=== PATIENT | female | born 1960 | race Two or more races ===

== ENCOUNTER 2024-03-31 15:15 | Inpatient (IN) | payer MEDICAID, OTHER ==
[~2024-03-31] VITALS: Ht 172.7 cm; Wt 84.5 kg
[2024-03-31] MEDS: IPRATROPIUM BROM 0.5 MG/2.5ML INH SOL NEB ONE (16:13)
[2024-03-31] MEDS: ALBUTEROL SULF 2.5 MG/0.5ML(0.5%) NEB SOLN NEB ONE (16:14)
[2024-03-31] MEDS: methylPREDNISolone SOD SUCC 125 MG/2 ML VL IM ONE (16:41)
[2024-03-31 16:46] VITALS: PULSE 93; RESP 17; O2SAT 96
[2024-03-31 17:10] LABS: Basophils # (auto) 0 10 ^3/uL (0-0.2); Basophils % (auto) 0.3 % (0.0-2.0); Eosinophils # (auto) 0 10 ^3/uL (0-0.8); Eosinophils % (auto) 0.4 % (0.0-7.0); Hematocrit 41.1 % (36.0-46.0); Hemoglobin 13.6 g/dL (12.2-16.2); Lymphocytes # (auto) 1.3 10 ^3/uL (0.4-5.4); Lymphocytes % (auto) 12.2 % (10.0-50.0); Mean Corpuscular Hemoglobin 27.8 pg (28.0-32.0); Mean Corpuscular Volume 84.3 fL (80.0-100.0); Monocytes # (auto) 0.7 10 ^3/uL (0-1.3); Neutrophils # (auto) 8.3 10 ^3/uL (1.6-8.6); Neutrophils % (auto) 80.1 % (37.0-80.0); Nucleated Red Blood Cells % 0.1 %; Platelet Count (auto) 443 10^3/uL (140-450); Red Blood Cells 4.88 10^6/uL (4.0-5.20); Red Cell Distribution Width 14.4 % (11.8-14.3); White Blood Cell 10.4 10^3/uL (4.4-10.8)
[2024-03-31 17:22] LABS: Chloride 101 mmol/L (98-107); Potassium 3.4 mmol/L (3.5-5.1); Sodium 139 mmol/L (136-145)
[2024-03-31 17:23] LABS: Anion Gap 7 (5-15); Calcium 10.1 mg/dL (8.7-10.4); Carbon Dioxide 31 mmol/L (20-31)
--- NOTE | 2024-03-31 17:24 | DVH ---
Procedure: CT CHEST WITHOUT CONTRAST Reason for study/Clinical History: PULMONARY NODULES Comparison Study: None available at time of dictation. Exam Date: 03/31/2024 04:51 PM TECHNIQUE: Multidetector CT of the chest was performed from the lung apices to the upper abdomen with out the use of intravenous contract. Axial, coronal and sagittal multiplanar reformats were performed . Radiation Dose Information: CT Dose: CTDI volume is 18.17 mGy. Dose-length product is 700.42 mGy*cm The dose indicators for CT are the volume Computed Tomography (CT) Dose Index (CTDIvol) and the Dose Length Product (DLP), and are measured in units of mGy and mGy-cm, respectively. These indicators are not patient dose, but values generated from the CT scanner acquisition factors. The report includes radiation exposure data for exposures received during this examination. FINDINGS: Lower neck: Normal thyroid. Lungs: There are numerous nodules in both lungs, largest measures up to 24 mm in the right upper lobe . There is mass like consolidation in the left lower lobe. There is a left hilar mass. Heart/Vascular Structures: Normal heart size. No pericardial effusion. Lymph Nodes: There is extensive mediastinal and hilar lymphadenopathy. Pleura: Small left pleural effusion. Musculoskeletal: No acute osseous abnormality. Soft tissues: Normal. Upper abdomen: Limited portions of the upper abdomen are unremarkable. IMPRESSION: 1. Limited without intravenous contrast. Large left hilar mass and large mass replacing most of the l eft lower lung. Extensive bilateral pulmonary nodules, largest measuring up to 24 mm in the right upp er lobe. Mediastinal and bilateral hilar lymphadenopathy. Small left pleural effusion. Findings are c oncerning for malignant disease. CT guided biopsy could be performed. Clinical correlation and contin ue follow-up is recommended. Radiation optimization: All CT scans at this facility use at least one of these dose optimization [place] hniques: automated exposure control mA and/or kV adjustment per patient size (includes targeted exam s where dose is matched to clinical indication) or iterative reconstruction. HS:Y
[2024-03-31 17:28] LABS: BUN/Creatinine Ratio 13.3 (10.0-20.0); Blood Urea Nitrogen 11 mg/dL (9-23); Glucose 116 mg/dL (74-106)
[2024-03-31 17:34] LABS: Urine Bacteria FEW /hpf (None Seen); Urine Blood Negative /uL (Negative); Urine Clarity Turbid (Clear); Urine Color Yellow (Yellow); Urine Hyaline Cast MANY /lpf (0 - 2); Urine Mucus FEW (None Seen); Urine Protein, UAD 1+ (Negative); Urine Squamous Epithelial Cell MOD /hpf (<5); Urine Urobilinogen 2 mg/dL (Negative); Urine WBC 20 /hpf (0 - 5)
--- NOTE | 2024-03-31 18:13 | ED.PDOC ---
SOB-HPI HPI Comments 39-year-old female complaining of shortness a breath x6 weeks. States he was progressively getting worse. States she did have recent travel to [place]. Says no smoking no new foods no new medications. Nothing makes it better, nothing makes it worse. Does report some mild coughing but she was worse at nighttime. States typically during the day it is a dry cough but at nighttime she does produce phlegm. Upon arrival to the emergency department patient is saturating at 93% on room air. Patient placed on 2 L nasal cannula with improvement to 98% O2 saturation Chief Complaint: Shortness of Breath Time Seen by MD: 15:54 Primary Care Provider: NONE Reviewed notes: Nurses Notes Information Source: Patient Mode of Arrival: Ambulatory Severity: Mild Past Medical History PAST MEDICAL HISTORY: Depression, Thyroid Constitutional: denies: chills, diaphoresis, fatigue, fever, malaise, sweats, weakness, others EENTM: denies: blurred vision, double vision, ear bleeding, ear discharge, ear drainage, ear pain, ear ringing, eye pain, eye redness, hearing loss, mouth pain, mouth swelling, nasal discharge, nose bleeding, nose congestion, nose pain, photophobia, tearing, throat pain, throat swelling, voice changes, others Respiratory: reports: cough, SOB at rest; denies: hemoptysis, orthopnea, sh ortness of breath, SOB with excertion, stridor, wheezing, others Cardiovascular: denies: chest pain, dizzy spells, diaphoresis, Dyspnea on exertion, edema, irregular heart beat, left arm pain, lightheadedness, palpitations, PND, syncope, others Gastrointestinal: denies: abdomen distended, abdominal pain, blood streaked bowels, constipated, diarrhea, dysphagia, difficulty swallowing, hematemesis, melena, nausea, poor appetite, poor fluid intake, rectal bleeding, rectal pain, vomiting, others Genitourinary: denies: abnormal vagina bleeding, burning, dyspareunia, dysuria, flank pain, frequency, hematuria, incontinence, pain, , vagina discharge, urgency, others Neurological: denies: dizziness, fainting, headache, left sided numbness, left sided weakness, numbness, paresthesia, pre-existing deficit, right sided numbness, right sided weakness, seizure, speech problems, tingling, tremors, weakness, others Musculoskeletal: denies: back pain, gout, joint pain, joint swelling, muscle pain, muscle stiffness, neck pain, others Integumetry: denies: bruises, change in color, change in hair/nails, dryness, laceration, lesions, lumps, rash, wounds, others Allergic/Immunocompromised: denies: Difficulty Healing, Frequent Infections, Hives, Itching, others Hematologic/Lymphatic: denies: anemia, blood clots, easy bleeding, easy bruising, swollen glands, others Physical Exam General Appearance: No Apparent Distress, Normal HEENT: Normal ENT Inspection, Pharynx Normal, TMs Normal Neck: Full Range of Motion, Non-Tender, Normal, Normal Inspection Respiratory: Chest Non-Tender, No Accessory Muscle Use, No Respiratory Distress, Rhonchi (Left lobe), Wheezing (Left upper quadrant) Cardiovascular: No Edema, No JVD, No Murmur, No Gallop, Normal Peripheral Pulses, Regular Rate/Rhythm Breast Exam: Deferred Gastrointestinal: No Organomegaly, Non Tender, No Pulsatile Mass, Normal Bowel Sounds, Soft Genitalia: Deferred Pelvic: Deferred Rectal: Deferred Extremities: No calf tenderness, Normal capillary refill, Normal inspection, Normal range of motion, Non-tender, No pedal edema Musculoskeletal : Apperance: Normal Neurologic: Alert, electrical power station technician II-XII nml as Tested, No Motor Deficits, Normal Affect, Normal Mood, No Sensory Deficits Cerebellar Function: Normal Reflexes: Normal Skin: Dry, Normal Color, Warm Lymphatic: No Adenopathy Was a procedure done? Was a procedure done?: No Differential Dx Differential Diagnosis: Asthma, Bronchitis, COPD, Pneumonia, Pulmonary Embolism, Respiratory Distress Comments Pleural effusion, malignancy, fungal infection X-Ray, Labs, Meds, VS Vital Signs Date Time Temp Pulse Resp B/P (MAP) Pulse Ox O2 Delivery O2 Flow Rate FiO2 03/31/24 16:46 93 17 96 Nasal Cannula* 2 28 03/31/24 16:44 96 18 131/74 (93) 96 03/31/24 16:44 96 18 96 Room Air 03/31/24 16:14 18 94 Nasal Cannula* 2 28 03/31/24 15:57 97.9 90 18 135/78 (97) 93 03/31/24 15:53 96 Nasal Cannula* 2 28 Lab Test 03/31/24 17:01 03/31/24 16:45 Range/Units Urine Color Yellow Yellow Urine Clarity Turbid H Clear Urine pH 6.0 5.0-9.0 Urine Specific [place] 1.030 1.001-1.035 Urine Protein 1+ H Negative Urine Ketones Trace Negative Urine Blood Negative Negative /uL Urine Nitrite Negative Negative Urine Bilirubin Negative Negative Urine Urobilinogen 2 H Negative mg/dL Urine Leukocyte Esterase 3+ Negative /uL Urine RBC 16 0 - 4 /hpf Urine WBC 20 0 - 5 /hpf Urine Squamous Epithelial Cells Mod <5 /hpf Urine Bacteria Few H None Seen /hpf Urine Hyaline Casts Many 0 - 2 /lpf Urine Mucus Few None Seen Urine Glucose Normal Normal mg/dL White Blood Count 10.4 4.4-10.8 10^3/uL Red Blood Count 4.88 4.0-5.20 10^6/uL Hemoglobin 13.6 12.2-16.2 g/dL Hematocrit 41.1 36.0-46.0 % Mean Corpuscular Volume 84.3 80.0-100.0 fL Mean Corpuscular Hemoglobin 27.8 L 28.0-32.0 pg Mean Corpuscular Hemoglobin Concent 33.0 32.0-36.0 g/dL Red Cell Distribution Width 14.4 H 11.8-14.3 % Platelet Count 443 140-450 10^3/uL Mean Platelet Volume 7.4 6.9-10.8 fL Neutrophils (%) (Auto) 80.1 H 37.0-80.0 % Lymphocytes (%) (Auto) 12.2 10.0-50.0 % Monocytes (%) (Auto) 7.0 0.0-12.0 % Eosinophils (%) (Auto) 0.4 0.0-7.0 % Basophils (%) (Auto) 0.3 0.0-2.0 % Neutrophils # (Auto) 8.3 1.6-8.6 10 ^3/uL Lymphocytes # (Auto) 1.3 0.4-5.4 10 ^3/uL Monocytes # (Auto) 0.7 0-1.3 10 ^3/uL Eosinophils # (Auto) 0 0-0.8 10 ^3/uL Basophils # (Auto) 0 0-0.2 10 ^3/uL Nucleated Red Blood Cells 0.1 % Sodium Level 139 136-145 mmol/L Potassium Level 3.4 L 3.5-5.1 mmol/L Chloride Level 101 98-107 mmol/L Carbon Dioxide Level 31 20-31 mmol/L Anion Gap 7 5-15 Blood Urea Nitrogen 11 9-23 mg/dL Creatinine 0.83 0.550-1.02 mg/dL Glomerular Filtration Rate Calc 79 >90 mL/min BUN/Creatinine Ratio 13.3 10.0-20.0 Serum Glucose 116 H 74-106 mg/dL Calcium Level 10.1 8.7-10.4 mg/dL Current Medications Medications (Trade) Dose Ordered Sig/Lizzette Route Start Time Stop Time Status Last Admin Albuterol (Ventolin Medneb) 2.5 mg ONCE ONCE NEB 03/31/24 16:00 03/31/24 16:01 DC 03/31/24 16:14 Ipratropium [place] (Atrovent Medneb) 0.5 mg ONCE ONCE NEB 03/31/24 16:00 03/31/24 16:01 DC 03/31/24 16:13 Methylprednisolone Sodium Succinate (Solu Medrol) 125 mg ONCE ONCE IM 03/31/24 16:00 03/31/24 16:01 DC 03/31/24 16:41 X-Ray, Labs, Meds, VS Comment CT scan shows possible mass noted in the left lobe of the lung with some scattered lesions in the right lobe. Concerns of possible malignancy. Patient will be admitted for further evaluation, recommendation of CT biopsy of the mass Patient currently hypoxic, O2 saturation of 90-93 on room air. Patient is she was good improvement and decreasing of shortness a breath with 2 L nasal cannula Patient reports no shortness no follow up unable to see a primary doctor Time of 1ST Reevaluation: 18:13 Reevaluation 1ST: Unchanged Patient Education/Counseling: Diagnosis, Treatment Family Education/Counseling: Diagnosis, Treatment Departure 1 Departure Time of Disposition: 18:11 Impression: Primary Impression: Pleural effusion Additional Impressions: Mass of left lung Shortness of breath Hypoxia Disposition: 09 ADMITTED INPATIENT Condition: Fair Discharged With: Self Critical Care Note Critical Care Time?: No Stability Stability form required: No Heart Score Heart Score: Heart Score Response (Comments) Value History N/A 0 EKG N/A 0 Age N/A 0 Risk Factors N/A 0 Troponin N/A 0 Total 0 ROSE BIGGS Mar 31, 2024 18:13
[2024-03-31] MEDS ORDERED: IPRATROPIUM BROM 0.5 MG/2.5ML INH SOL NEB PRN (21:30)
[2024-03-31] MEDS ORDERED: ONDANSETRON HCL 4 MG/2 ML VIAL IV PRN (21:30)
[2024-03-31] MEDS ORDERED: ACETAMINOPHEN 325 MG TAB PO PRN (21:30)
[2024-03-31] MEDS ORDERED: levoFLOXacin 500MG 100 ML IV ONE (21:30)
[2024-03-31] MEDS ORDERED: HYDROcodone-ACET 5/325MG TAB PO PRN (21:30)
[2024-03-31] MEDS ORDERED: ALBUTEROL SULF 2.5 MG/0.5ML(0.5%) NEB SOLN NEB PRN (21:30)
[2024-03-31 21:41] VITALS: BP 125/71; PULSE 89; RESP 15; TEMP 97.7; O2SAT 95
[2024-03-31] MEDS ORDERED: levoFLOXacin 250MG 50 ML IV SCH (22:00)
[2024-03-31] MEDS: levoFLOXacin 250MG 50 ML IV SCH (22:13)
--- NOTE | 2024-03-31 22:47 | DVHHP2 ---
History of Present Illness Reason for Visit: Shortness of breath History of Present Illness 63-year-old female presents for evaluation of shortness of breath. Patient endorses a six week history of worsening shortness for breath after coming back from a trip from [place]. She also reports having a 20 lb of unintentional weight loss over the past six weeks. Denies fever or chills. Denies chest pain or palpitations. She was seen at urgent care today and was advised to present to the emergency department for further evaluation. Past Medical History Depression and thyroid Past Surgical History Denies Family History Noncontributory Smoke: No ALCOHOL: none Drugs: None Lives: with Family Review of Systems Review of Systems Review of systems are currently negative otherwise addressed in HPI. Allergies: Coded Allergies: Penicillins (Verified Allergy, Unknown, 03/31/24) Medications Current Medications Medications Dose Ordered Sig/Lizzette Route Start Time Stop Time Status Last Admin Dose Admin Albuterol 2.5 mg Q6HPRN PRN NEB 03/31/24 21:30 Ipratropium Walker 0.5 mg Q6HPRN PRN NEB 03/31/24 21:30 Amlodipine Besylate 5 mg DAILY PO 04/01/24 10:00 Acetaminophen/ Hydrocodone Bitart 1 tab Q4HP PRN PO 03/31/24 21:30 Ondansetron HCl 4 mg Q4HP PRN IV 03/31/24 21:30 Acetaminophen 650 mg Q6HP PRN PO 03/31/24 21:30 Levofloxacin 50 ml @ 50 mls/hr 2200,2300 IV 03/31/24 22:00 03/31/24 22:13 50 MLS/HR Exam Vital Signs Vital Signs Date Time Temp Pulse Resp B/P (MAP) Pulse Ox O2 Delivery O2 Flow Rate FiO2 03/31/24 21:41 95 Nasal Cannula 2.0 03/31/24 21:41 28 03/31/24 21:41 97.7 89 15 125/71 97.7 Exam Gen: 63-year-old female in mild distress Skin: Warm, dry, normal color and texture, no rash. HEENT: Normocephalic atraumatic, mucous membranes moist and pink. Neck: Cervical and supraclavicular nodes normal without enlargement, trachea is midline, thyroid gland is normal without masses. Pulmonary: Diminished breath sounds bilateral Cardiac: Regular rate and rhythm. No murmur Abdomen: Soft, nontender, nondistended, bowel sounds present all 4 quadrants, no guarding, no rigidity, no organomegaly. Extremities: No cyanosis, clubbing, no edema Neuro: Cranial nerves II through XII grossly intact, normal affect and speech, no focal motor deficits. Labs/Xrays ORDERING PHYSICIAN: ROSE BIGGS PROCEDURE(s): CX2CT - CHEST WITHOUT CONTRAST REASON: PULMONARY NODULES ORDER NUMBER(s): [id number], ACCESSION NUMBER(s): [id number] Procedure: CT CHEST WITHOUT CONTRAST Reason for study/Clinical History: PULMONARY NODULES Comparison Study: None available at time of dictation. Exam Date: 03/31/2024 04:51 PM TECHNIQUE: Multidetector CT of the chest was performed from the lung apices to the upper abdomen without the use of intravenous contract. Axial, coronal and sagittal multiplanar reformats were performed. Radiation Dose Information: CT Dose: CTDI volume is 18.17 mGy. Dose-length product is 700.42 mGy*cm The dose indicators for CT are the volume Computed Tomography (CT) Dose Index (CTDIvol) and the Dose Length Product (DLP), and are measured in units of mGy and mGy-cm, respectively. These indicators are not patient dose, but values generated from the CT scanner acquisition factors. The report includes radiation exposure data for exposures received during this examination. FINDINGS: Lower neck: Normal thyroid. Lungs: There are numerous nodules in both lungs, largest measures up to 24 mm in the right upper lobe. There is mass like consolidation in the left lower lobe. There is a left hilar mass. Heart/Vascular Structures: Normal heart size. No pericardial effusion. Lymph Nodes: There is extensive mediastinal and hilar lymphadenopathy. Pleura: Small left pleural effusion. Musculoskeletal: No acute osseous abnormality. Soft tissues: Normal. Upper abdomen: Limited portions of the upper abdomen are unremarkable. IMPRESSION: 1. Limited without intravenous contrast. Large left hilar mass and large mass replacing most of the left lower lung. Extensive bilateral pulmonary nodules, largest measuring up to 24 mm in the right upper lobe. Mediastinal and bilateral hilar lymphadenopathy. Small left pleural effusion. Findings are concerning for malignant disease. CT guided biopsy could be performed. Clinical correlation and continue follow-up is recommended. Radiation optimization: All CT scans at this facility use at least one of these dose optimization techniques: automated exposure control mA and/or kV adjustment per patient size (includes targeted exams where dose is matched to clinical indication) or iterative reconstruction. HS:Y Labs Test 03/31/24 17:01 03/31/24 16:45 Range/Units Urine Color Yellow Yellow Urine Clarity Turbid H Clear Urine pH 6.0 5.0-9.0 Urine Specific [place] 1.030 1.001-1.035 Urine Protein 1+ H Negative Urine Ketones Trace Negative Urine Blood Negative Negative /uL Urine Nitrite Negative Negative Urine Bilirubin Negative Negative Urine Urobilinogen 2 H Negative mg/dL Urine Leukocyte Esterase 3+ Negative /uL Urine RBC 16 0 - 4 /hpf Urine WBC 20 0 - 5 /hpf Urine Squamous Epithelial Cells Mod <5 /hpf Urine Bacteria Few H None Seen /hpf Urine Hyaline Casts Many 0 - 2 /lpf Urine Mucus Few None Seen Urine Glucose Normal Normal mg/dL White Blood Count 10.4 4.4-10.8 10^3/uL Red Blood Count 4.88 4.0-5.20 10^6/uL Hemoglobin 13.6 12.2-16.2 g/dL Hematocrit 41.1 36.0-46.0 % Mean Corpuscular Volume 84.3 80.0-100.0 fL Mean Corpuscular Hemoglobin 27.8 L 28.0-32.0 pg Mean Corpuscular Hemoglobin Concent 33.0 32.0-36.0 g/dL Red Cell Distribution Width 14.4 H 11.8-14.3 % Platelet Count 443 140-450 10^3/uL Mean Platelet Volume 7.4 6.9-10.8 fL Neutrophils (%) (Auto) 80.1 H 37.0-80.0 % Lymphocytes (%) (Auto) 12.2 10.0-50.0 % Monocytes (%) (Auto) 7.0 0.0-12.0 % Eosinophils (%) (Auto) 0.4 0.0-7.0 % Basophils (%) (Auto) 0.3 0.0-2.0 % Neutrophils # (Auto) 8.3 1.6-8.6 10 ^3/uL Lymphocytes # (Auto) 1.3 0.4-5.4 10 ^3/uL Monocytes # (Auto) 0.7 0-1.3 10 ^3/uL Eosinophils # (Auto) 0 0-0.8 10 ^3/uL Basophils # (Auto) 0 0-0.2 10 ^3/uL Nucleated Red Blood Cells 0.1 % Sodium Level 139 136-145 mmol/L Potassium Level 3.4 L 3.5-5.1 mmol/L Chloride Level 101 98-107 mmol/L Carbon Dioxide Level 31 20-31 mmol/L Anion Gap 7 5-15 Blood Urea Nitrogen 11 9-23 mg/dL Creatinine 0.83 0.550-1.02 mg/dL Glomerular Filtration Rate Calc 79 >90 mL/min BUN/Creatinine Ratio 13.3 10.0-20.0 Serum Glucose 116 H 74-106 mg/dL Calcium Level 10.1 8.7-10.4 mg/dL Assessment/Plan Assessment/Plan Assessment Pulmonary mass Acute hypoxic respiratory failure Urinary tract infection Thyroid Plan Admit the patient to Med surge to the hospitalist Hematology/oncology consultation Radiology consult for possible biopsy Med nebs Continue treatment per orders. Plan discussed with: Patient My Orders Orders - JOSSIE ALEXANDER Procedure Category Date Status Time * Hematology/Oncology CONS 03/31/24 Transmitted Consult 21:22 * Radiologist Consult CONS 03/31/24 Transmitted 21:22 Albuterol Medneb PHA 03/31/24 In Process (Ventolin Medneb) 21:30 Ipratropium Medneb PHA 03/31/24 In Process (Atrovent Medneb) 21:30 Amlodipine Tablet PHA 04/01/24 In Process (Norvasc Tablet) 10:00 Basic Metabolic Panel LAB 04/01/24 Verified 04:00 Admit ADMIT 03/31/24 Transmitted 21:22 Hydrocodone-Acet PHA 03/31/24 In Process 5/325mg Tab ([place] 21:30 Ondansetron Hcl PHA 03/31/24 In Process (Zofran) 21:30 Complete Blood Count LAB 04/01/24 Verified 04:00 Cardiac DIET 04/01/24 Transmitted Diet-2gna,Lofat,Lochol Breakfast Condition: Stable RADHA 03/31/24 In Process 21:22 Acetaminophen Tablet PHA 03/31/24 In Process (Tylenol Tablet) 21:30 Bedrest With Bathroom RADHA 03/31/24 In Process Privileg 21:22 Levofloxacin 250mg PHA 03/31/24 In Process (Levaquin 250mg) 22:00 Date of Service: Mar 31, 2024 Billing Provider: JOSSIE ALEXANDER Common Visit Codes: [id number] INP/OBS CARE (HIGH) JOSSIE ALEXANDER Mar 31, 2024 22:47
[2024-04-01] VITALS (9 sets, daily range): BP systolic 115–147; BP diastolic 72–85; PULSE 66–96; RESP 16–19; TEMP 97.6–98.8; O2SAT 94–97
[2024-04-01 04:04] LABS: Basophils # (auto) 0.1 10 ^3/uL (0-0.2); Basophils % (auto) 0.6 % (0.0-2.0); Eosinophils # (auto) 0 10 ^3/uL (0-0.8); Hematocrit 38.5 % (36.0-46.0); Hemoglobin 12.6 g/dL (12.2-16.2); Lymphocytes # (auto) 0.5 10 ^3/uL (0.4-5.4); Lymphocytes % (auto) 5.9 % (10.0-50.0); Mean Corpuscular Hemoglobin 27.6 pg (28.0-32.0); Mean Corpuscular Hgb Conc. 32.8 g/dL (32.0-36.0); Mean Corpuscular Volume 84.1 fL (80.0-100.0); Monocytes # (auto) 0.1 10 ^3/uL (0-1.3); Monocytes % (auto) 0.9 % (0.0-12.0); Neutrophils # (auto) 7.9 10 ^3/uL (1.6-8.6); Neutrophils % (auto) 92.6 % (37.0-80.0); Platelet Count (auto) 421 10^3/uL (140-450); Red Blood Cells 4.58 10^6/uL (4.0-5.20); Red Cell Distribution Width 15.1 % (11.8-14.3); White Blood Cell 8.5 10^3/uL (4.4-10.8)
[2024-04-01 04:06] LABS: Chloride 101 mmol/L (98-107); Potassium 4.4 mmol/L (3.5-5.1); Sodium 136 mmol/L (136-145)
[2024-04-01 04:07] LABS: Anion Gap 9 (5-15); Calcium 10.2 mg/dL (8.7-10.4); Carbon Dioxide 26 mmol/L (20-31)
[2024-04-01 04:12] LABS: BUN/Creatinine Ratio 14.1 (10.0-20.0); Blood Urea Nitrogen 10 mg/dL (9-23); Glucose 167 mg/dL (74-106)
[2024-04-01] MEDS ORDERED: AMLO1TAB22 PO (04:20)
[2024-04-01] MEDS ORDERED: ESCI1TAB37 PO (04:20)
[2024-04-01] MEDS ORDERED: LEVO-177 PO (04:20)
[2024-04-01] MEDS: amLODIPine BESYLATE 5 MG TAB PO SCH (09:58)
[2024-04-01 11:10] LABS: INR 1.08 (0.9-1.15); Partial Thromboplastin Time 29.3 SEC (24.5-34.5); Prothrombin Time 11.4 sec (9.3-11.8)
--- NOTE | 2024-04-01 15:30 | DVH ---
CLINICAL INFORMATION: 63 years old, Female; malignancy. Left lung mass, hilar and mediastinal lymph adenopathy, and suspicious bilateral pulmonary nodules seen on recent CT chest exam. TECHNIQUE: Axial CT images of the abdomen and pelvis were obtained after the uneventful administrati on of 100 mL Omnipaque 300 IV contrast. Coronal and sagittal reformatted images were obtained, review ed, and stored. All CT scans at this medical facility are performed using dose modulation techniques as appropriate to a performed exam including the following: Automated exposure control was utilized; adjustment of the MA and/or KV according to patient size; and use of iterative reconstruction technHotreader ue. CTDIvol = 17.47 mGy DLP = 1028.57 mGy-cm COMPARISON: None FINDINGS: Lung bases: Small left pleural effusion. Partially visualized bilateral pulmonary nodules and left l ower lobe mass, demonstrated on recent CT chest. Liver: Hepatic steatosis. Liver is enlarged, measuring up to 17.7 cm in craniocaudal dimension at th e midclavicular line. No focal liver lesion visualized. Biliary: No calcified gallstones or biliary ductal dilatation. Spleen: Unremarkable. Pancreas: Unremarkable. No inflammatory changes, ductal dilatation, or mass identified. Adrenal glands: Unremarkable. No mass. Kidneys: No hydronephrosis. Small subcentimeter low-attenuation lesion at the inferior pole of the ri ght kidney, most likely a cyst, but not well characterized due to its small size. Aorta/Vascular: Moderate atherosclerotic calcification. No abdominal aortic aneurysm. Retroperitoneum: No mass or lymphadenopathy. Bowel/mesentery: No small bowel obstruction. No free air or free fluid. Appendix is not visualized. Scattered colonic diverticula without adjacent inflammatory changes to suggest diverticulitis. Pelvic organs: Lobulated contour of the uterus, with suspected fibroid along its dorsal aspect, poorl y delineated from the uterine myometrium, but appears to measure up to 2.9 cm. Bladder: Unremarkable. No mass. Abdominal wall: Small fat containing umbilical hernia. Bones: Sclerotic lesion in the L5 vertebral body. IMPRESSION: 1. Sclerotic lesion in the L5 vertebral body. Differential considerations would include sclerotic me tastasis or bone island. MRI could be obtained to further characterize if clinically indicated. 2. No other evidence of metastatic disease in the abdomen or pelvis. 3. Partially visualized pulmonary nodules, small left pleural effusion, and left lower lobe mass, see n on recent CT chest exam. 4. Hepatomegaly and hepatic steatosis. No focal liver lesions . 5. Additional nonacute findings as detailed above.
--- NOTE | 2024-04-01 15:51 | DVHPN2 ---
Subjective Patient reports having shortness of breath, generalized weakness. Reviewed: Care Plan, H&P, Labs, Medications Changes from previous H/P or p: No Changes General: Per HPI Objective Vitals Vital Signs Date Time Temp Pulse Resp B/P (MAP) Pulse Ox O2 Delivery O2 Flow Rate FiO2 04/01/24 13:00 98.0 66 16 134/74 (94) 96 98.0 04/01/24 07:30 Nasal Cannula* 2 28 Intake/Output Intake and Output 04/01/24 07:00 Intake Total 100 ml Balance 100 ml Intake Oral 0 ml IV Total 100 ml General Appearance: Alert, Oriented X3, Cooperative, mild distress HEENT: Atraumatic, PERRLA Lungs: Normal air movement, Other (Decreased Breath sounds in left lower lobe) Cardiovascular: Normal S1, Normal S2 Abdomen: Normal bowel sounds Musculoskeletal: Normal sensory function, Normal motor function Extremities: No clubbing, No cyanosis Neuro: Normal gait, Normal speech Psych/Mental Status: Mental status NL, Mood NL Medications Current Medications Medications Dose Ordered Sig/Lizzette Route Start Time Stop Time Status Last Admin Dose Admin Albuterol 2.5 mg Q6HPRN PRN NEB 03/31/24 21:30 Ipratropium [place] 0.5 mg Q6HPRN PRN NEB 03/31/24 21:30 Amlodipine Besylate 5 mg DAILY PO 04/01/24 10:00 Acetaminophen/ Hydrocodone Bitart 1 tab Q4HP PRN PO 03/31/24 21:30 Ondansetron HCl 4 mg Q4HP PRN IV 03/31/24 21:30 Acetaminophen 650 mg Q6HP PRN PO 03/31/24 21:30 Levofloxacin 50 ml @ 50 mls/hr 2200,2300 IV 03/31/24 22:00 03/31/24 23:11 50 MLS/HR Laboratory Results Laboratory Tests 04/01/24 03:30 Chemistry Test 03/31/24 16:45 04/01/24 03:30 Calcium Level 10.1 mg/dL (8.7-10.4) 10.2 mg/dL (8.7-10.4) Coagulation Test 04/01/24 10:25 Prothrombin Time 11.4 sec (9.3-11.8) Prothrombin Time INR 1.08 (0.9-1.15) Activated Partial Thromboplast Time 29.3 SEC (24.5-34.5) Urinalysis Test 03/31/24 17:01 Urine Color Yellow (Yellow) Urine Clarity Turbid (Clear) H Urine pH 6.0 (5.0-9.0) Urine Specific [place] 1.030 (1.001-1.035) Urine Protein 1+ (Negative) H Urine Ketones Trace (Negative) Urine Blood Negative /uL (Negative) Urine Nitrite Negative (Negative) Urine Bilirubin Negative (Negative) Urine Urobilinogen 2 mg/dL (Negative) H Urine Leukocyte Esterase 3+ /uL (Negative) Urine RBC 16 /hpf (0 - 4) Urine WBC 20 /hpf (0 - 5) Urine Squamous Epithelial Cells Mod /hpf (<5) Urine Bacteria Few /hpf (None Seen) H Urine Hyaline Casts Many /lpf (0 - 2) Urine Mucus Few (None Seen) Urine Glucose Normal mg/dL (Normal) Labs and/or images reviewed: Labs reviewed by me, Image(s) reviewed by me Assessment/Plan Assessment/Plan Impression: -acute hypoxic respiratory failure -left lung mass with multiple pulmonary nodules to bilateral lungs. Rule out lung CA -primary hypertension -obesity -hypothyroidism -depression Plan: -interventional radiology consultation for lung biopsy -CT scan of the abdomen and pelvis with contrast -potassium replacement -consultations: Oncology -repeat labs in a.m. Total time spent with patient discussing and formulating plan of care: 35 minutes. This medical document was created using an electronic medical record system with [employer] dictation system. Although this document has been carefully reviewed, there may still be some phonetic and typographical errors. These areas are purely typographical due to imperfections of the software programs, and do not reflect any compromise in the patient's medical care. Plan discussed with: Patient, Other (RN) My Orders Orders - YAMILE BUSH SEROLOGY TEACHER Procedure Category Date Status Time * Cnc Applications Engineer CONS 04/01/[address] Guidance For CT 04/01/24 Taken Needle Placeme 13:[address] 04/01/24 Taken 13:19 Ct Ab Pel With Iv Con CT 04/01/24 Resulted Only 13:43 Lactate Dehydrogenase LAB 04/02/24 Verified 04:00 Basic Metabolic Panel LAB 04/02/24 Verified 04:00 Chest Portable XY 04/01/24 Taken 15:17 Chest Portable XY 04/01/24 Logged 17:30 Date of Service: Apr 01, 2024 Billing Provider: YAMILE BUSH NP Common Visit Codes: [id number] INP/OBS CARE(HIGH) YAMILE BUSH NP Apr 01, 2024 15:51
--- NOTE | 2024-04-01 15:52 | DVH ---
CHEST RADIOGRAPH Indication:POST LUNG BX Technique: Single frontal view of the chest was obtained COMPARISON: None FINDINGS: Lines and Tubes: None Lungs: Bilateral pulmonary nodules. Left midlung airspace disease. Pleura: No effusion. No pneumothorax. Cardiomediastinal contours: Unremarkable Bones: Unremarkable IMPRESSION: No appreciable pneumothorax.
--- NOTE | 2024-04-01 18:03 | DVH ---
EXAMINATION: AP portable chest radiograph CLINICAL HISTORY: 2 HOUR POST LUNG BX COMPARISON: XY CHEST PORTABLE on DOS: 04/01/24 Findings and impression: Bilateral pulmonary nodules. Masslike consolidation again noted left lower lung field. No definite pneumothorax identified at this time. Grossly stable cardiomediastinal silhouette.
[2024-04-02] VITALS (9 sets, daily range): BP systolic 123–137; BP diastolic 64–86; PULSE 79–90; RESP 16–20; TEMP 97.6–98.1; O2SAT 93–96
--- NOTE | 2024-04-02 04:06 | DVH ---
PROCEDURE: CT GUIDED BIOPSY OF left lower lobe lung mass HISTORY: LUNG BX, mass DOCUMENTATION: Informed consent was obtained and a procedural time out was performed. SEDATION: Moderate sedation was utilized during the procedure. The patient received benzodiazepines a nd opioids, the dosing of which was documented in the patient s permanent medical record. Pre-sedatio n history and evaluation revealed no contraindications to sedation. The patient s level of consciousn ess and physiologic status was monitored continuously by the physician and nursing staff throughout t he procedure. Total intra-service moderate sedation time was 30 minutes. TECHNIQUE: The skin over the left lower chest was sterilely prepped, draped, and infiltrated with 1% lidocaine. Using CT guidance, a 17-gauge coaxial needle was directed into left lower lobe lung mass . The 18-gauge [place] biopsy needle was inserted coaxially and 3 core biopsy specimens were obtained. The coaxial needle was then removed and hemostasis was achieved with manual compression. Sterile milan ssings were applied. FINDINGS: Limited CT imaging demonstrates left lower lobe lung mass . Imaging confirms the needle tip within left lower lobe lung mass . Post-biopsy CT imaging showed no apparent complication. IMPRESSION: SUCCESSFUL CT GUIDED BIOPSY OF left lower lobe lung mass . PLEASE FOLLOW UP WITH PATHOLOGY FOR FINAL RESULTS. Radiation dose information: CTDI vol 185.4 mGy; DLP mGycm [address] dose [address] for [address] are the volume Computed Tomography (CT) Dose Index (CTDIvol) and the Dose Length Product (DLP), and are measured in units of mGy and mGy-cm, respectively. These indicators are not patient dose, but values generated from the CT scanner acquisition factors. The report includes radiation exposure data for exposures received during this examination. If multiple reports are prod uced from this examination, the exposure data is duplicated in each report. The exposure data report ed is indicative, but not determinative, of the radiation dose received by this patient. Radiation optimization: All CT scans at this facility use at least one of these dose optimization [place] hniques: automated exposure control mA and/or kV adjustment per patient size (includes targeted exam s where dose is matched to clinical indication) or iterative reconstruction.
[2024-04-02 06:25] LABS: Anion Gap 6 (5-15); Carbon Dioxide 31 mmol/L (20-31); Chloride 103 mmol/L (98-107); Potassium 3.7 mmol/L (3.5-5.1); Sodium 140 mmol/L (136-145)
[2024-04-02 06:27] LABS: Calcium 9.4 mg/dL (8.7-10.4)
[2024-04-02 06:31] LABS: Blood Urea Nitrogen 13 mg/dL (9-23); Glucose 98 mg/dL (74-106)
--- NOTE | 2024-04-02 09:28 | DVHINCON2 ---
Date of service: Apr 02, 2024 Referring Physician Ga Anderson NP Reason for Consultation Possible lung cancer History of Present Illness 63 years old female who has a history of hypertension. Her maternal grandmother had a lung cancer and she was a heavy smoker. The patient does not smoke or drink. She gives a history of thyroidectomy 30 years back and is taking thyroid replacement. She visited [place] recently and for the last 6 weeksShe has been having dry coughing and shortness of breath on exertion and some pressure on the chest. Lost 20 pounds in the last 6 weeks She had a CT scan of the chest without contrast which showed large left hilar mass and large mass replacing most of the left lower lung. Extensive bilateral pulmonary nodules, largest measuring up to 24 mm in the right upper lobe. Mediastinal and bilateral hilar lymphadenopathy. Small left pleural effusion. Findings are concerning for malignant disease. CT scan of the abdomen pelvis with IV contrast showed sclerotic lesion in the L5 vertebral body She had a CT-guided needle biopsy of the left lung mass on 04/01/2024 and the report is pending No complaints of any headaches nausea vomiting. No fevers night sweats no bruising or bleeding. No abdominal pains. Bowels move fine and no urinary discomfort. No back pains Past Medical History Hypertension Thyroidectomy Family History: FH: lung cancer Family History Maternal grandmother had lung cancer Social History No smoking or drinking. The patient is in the last 1 year. Has 2 children in good health Allergies: Coded Allergies: Latex (Verified Allergy, Unknown, 04/01/24) Penicillins (Verified Allergy, Unknown, 03/31/24) Home Meds Reported Medications Escitalopram Oxalate (ESCITALOPRAM OXALATE) 20 Mg Tab, 1 TAB PO DAILY 04/01/24 Amlodipine Besylate (Amlodipine Besylate) 5 Mg Tab, 1 TAB PO DAILY 04/01/24 Levothyroxine Sodium (Levothyroxine Sodium) 88 Mcg Tab, 1 TAB PO QAM 04/01/24 Current Medications Current Medications Medications (Trade) Dose Ordered Sig/Lizzette Route PRN Reason Start Time Stop Time Status Last Admin Amlodipine Besylate (Norvasc Tablet) 5 mg DAILY PO 04/01/24 10:00 Vital Signs Vital Signs Date Time Temp Pulse Resp B/P (MAP) Pulse Ox O2 Delivery O2 Flow Rate FiO2 04/02/24 08:41 97.6 90 18 129/75 (93) 93 97.6 04/01/24 20:00 Nasal Cannula* 2 28 Physical Exam GENERAL: The patient is a moderately built and nourished ,in no distress, alert and oriented. HEAD AND NECK: Unremarkable. No neck nodes or masses. Conjunctivae: Unremarkable for any mucosal hemorrhage or inflammation. Thyroid is nonpalpable. Throat is unremarkable. SPINE: No deformities or tenderness. CHEST: Chest wall, no tenderness. LUNGS: Clear. CARDIOVASCULAR: Regular sinus rhythm. No murmurs or gallops. ABDOMEN: No organomegaly, tenderness or ascites. Bowel sounds present. EXTREMITIES: No clubbing, edema or cyanosis. Peripheral pulses palpable. No calf tenderness. LYMPHATICS: No significant lymphadenopathy. NEUROLOGIC: No focal neurological deficits. SKIN: Unremarkable for any petechiae, purpura, or ecchymosis. Psych: No abnormalities Available data reviewed Labs/Diagnostic Data Labs Test 04/02/24 05:13 04/01/24 10:25 04/01/24 03:30 03/31/24 17:01 Range/Units Sodium Level 140 136-145 mmol/L Potassium Level 3.7 3.5-5.1 mmol/L Chloride Level 103 98-107 mmol/L Carbon Dioxide Level 31 20-31 mmol/L Anion Gap 6 5-15 Blood Urea Nitrogen 13 9-23 mg/dL Creatinine 0.62 0.550-1.02 mg/dL Glomerular Filtration Rate Calc 99 >90 mL/min BUN/Creatinine Ratio 21.0 H 10.0-20.0 Serum Glucose 98 74-106 mg/dL Calcium Level 9.4 8.7-10.4 mg/dL Lactate Dehydrogenase 150 120-246 U/L Prothrombin Time 11.4 9.3-11.8 sec Prothrombin Time INR 1.08 0.9-1.15 Activated Partial Thromboplast Time 29.3 24.5-34.5 SEC White Blood Count 8.5 4.4-10.8 10^3/uL Red Blood Count 4.58 4.0-5.20 10^6/uL Hemoglobin 12.6 12.2-16.2 g/dL Hematocrit 38.5 36.0-46.0 % Mean Corpuscular Volume 84.1 80.0-100.0 fL Mean Corpuscular Hemoglobin 27.6 L 28.0-32.0 pg Mean Corpuscular Hemoglobin Concent 32.8 32.0-36.0 g/dL Red Cell Distribution Width 15.1 H 11.8-14.3 % Platelet Count 421 140-450 10^3/uL Mean Platelet Volume 7.7 6.9-10.8 fL Neutrophils (%) (Auto) 92.6 H 37.0-80.0 % Lymphocytes (%) (Auto) 5.9 L 10.0-50.0 % Monocytes (%) (Auto) 0.9 0.0-12.0 % Eosinophils (%) (Auto) 0.0 0.0-7.0 % Basophils (%) (Auto) 0.6 0.0-2.0 % Neutrophils # (Auto) 7.9 1.6-8.6 10 ^3/uL Lymphocytes # (Auto) 0.5 0.4-5.4 10 ^3/uL Monocytes # (Auto) 0.1 0-1.3 10 ^3/uL Eosinophils # (Auto) 0 0-0.8 10 ^3/uL Basophils # (Auto) 0.1 0-0.2 10 ^3/uL Nucleated Red Blood Cells 0.0 % Urine Color Yellow Yellow Urine Clarity Turbid H Clear Urine pH 6.0 5.0-9.0 Urine Specific [place] 1.030 1.001-1.035 Urine Protein 1+ H Negative Urine Ketones Trace Negative Urine Blood Negative Negative /uL Urine Nitrite Negative Negative Urine Bilirubin Negative Negative Urine Urobilinogen 2 H Negative mg/dL Urine Leukocyte Esterase 3+ Negative /uL Urine RBC 16 0 - 4 /hpf Urine WBC 20 0 - 5 /hpf Urine Squamous Epithelial Cells Mod <5 /hpf Urine Bacteria Few H None Seen /hpf Urine Hyaline Casts Many 0 - 2 /lpf Urine Mucus Few None Seen Urine Glucose Normal Normal mg/dL Assessment 1. Large left hilar mass and large mass replacing most of the left lower lung with extensive bilateral pulmonary nodules and the largest measuring 2.4 cm in the right lower lobe. Mediastinal and bilateral hilar lymphadenopathy. CT of the abdomen pelvis was unremarkable Status post CT-guided needle biopsy of the left lower lung mass on 04/01/2024 and the report is pending . Weight loss of 20 Pounds, dry coughing and shortness of breath 2. History of hypertension Plan/Recommendation Will do an MRI of the brain Bone scan Wait for the lung biopsy workers compensation examiner involvement to see if she can qualify for [employer] sooner rather than waiting for June 2024 The patient is advised to follow-up with me after discharge Plan discussed with: Patient YULIA MOSER MD Apr 02, 2024 09:28
--- NOTE | 2024-04-02 11:41 | DVH ---
PROCEDURE: MRI OF THE BRAIN WITHOUT and with CONTRAST. CLINICAL INDICATION: 63 years old, Female; r/o mets. TECHNIQUE: Multiplanar, multi sequence MRI of the brain was performed without and with intravenous co ntrast. COMPARISON: None FINDINGS: There are no areas of restricted diffusion to suggest acute infarct. There are 3 circumscribed lesion s in the left occipital lobe which demonstrate avid enhancement, and are T1 hypointense and T2 hyperi ntense. The largest measures approximately 7 x 6 x 6 mm. These 3 lesions are surrounded by vasogenic edema. There are additional enhancing masses lesions in a left parietal lobule (series 15, image 10 5 ), measuring up to 5 mm also compatible with metastatic lesions. There is no evidence of acute intr acranial hemorrhage or midline shift. No mass effect. The ventricles, sulci and basal cisterns are in tact. No cerebellar tonsillar herniation. The paranasal sinuses and mastoid air cells are well pneumatized. The orbits and nasopharynx are inta ct. The osseous structures are intact. The vessels of the skull base demonstrate signal void consistent with patency. IMPRESSION: 1. Left occipital lobe with vasogenic edema most suspicious for metastatic disease. Additional smalle r enhancing lesions in the left parietal lobe also suspicious for metastatic lesions. 2. No evidence of acute infarct or intracranial hemorrhage.
--- NOTE | 2024-04-02 15:22 | DVHPN2 ---
Subjective Patient reports having shortness of breath, generalized weakness. Reviewed: Care Plan, H&P, Labs, Medications Changes from previous H/P or p: No Changes General: Per HPI Objective Vitals Vital Signs Date Time Temp Pulse Resp B/P (MAP) Pulse Ox O2 Delivery O2 Flow Rate FiO2 04/02/24 13:00 97.6 79 16 126/64 (84) 94 97.6 04/01/24 20:00 Nasal Cannula* 2 28 Intake/Output Intake and Output 04/02/24 07:00 Intake Total 460 ml Balance 460 ml Intake Oral 360 ml IV Total 100 ml # Voids 10 General Appearance: Alert, Oriented X3, Cooperative, mild distress HEENT: Atraumatic, PERRLA Lungs: Normal air movement, Other (Decreased Breath sounds in left lower lobe) Cardiovascular: Normal S1, Normal S2 Abdomen: Normal bowel sounds Musculoskeletal: Normal sensory function, Normal motor function Extremities: No clubbing, No cyanosis Neuro: Normal gait, Normal speech Psych/Mental Status: Mental status NL, Mood NL Medications Current Medications Medications Dose Ordered Sig/Lizzette Route Start Time Stop Time Status Last Admin Dose Admin Albuterol 2.5 mg Q6HPRN PRN NEB 03/31/24 21:30 Ipratropium [place] 0.5 mg Q6HPRN PRN NEB 03/31/24 21:30 Amlodipine Besylate 5 mg DAILY PO 04/01/24 10:00 04/02/24 09:20 5 MG Acetaminophen/ Hydrocodone Bitart 1 tab Q4HP PRN PO 03/31/24 21:30 Ondansetron HCl 4 mg Q4HP PRN IV 03/31/24 21:30 Acetaminophen 650 mg Q6HP PRN PO 03/31/24 21:30 Levofloxacin 50 ml @ 50 mls/hr 2200,2300 IV 03/31/24 22:00 04/01/24 22:43 50 MLS/HR Laboratory Results Laboratory Tests 04/01/24 03:30 04/02/24 05:13 Chemistry Test 04/02/24 05:13 Calcium Level 9.4 mg/dL (8.7-10.4) Urinalysis Test 03/31/24 17:01 Urine Color Yellow (Yellow) Urine Clarity Turbid (Clear) H Urine pH 6.0 (5.0-9.0) Urine Specific [place] 1.030 (1.001-1.035) Urine Protein 1+ (Negative) H Urine Ketones Trace (Negative) Urine Blood Negative /uL (Negative) Urine Nitrite Negative (Negative) Urine Bilirubin Negative (Negative) Urine Urobilinogen 2 mg/dL (Negative) H Urine Leukocyte Esterase 3+ /uL (Negative) Urine RBC 16 /hpf (0 - 4) Urine WBC 20 /hpf (0 - 5) Urine Squamous Epithelial Cells Mod /hpf (<5) Urine Bacteria Few /hpf (None Seen) H Urine Hyaline Casts Many /lpf (0 - 2) Urine Mucus Few (None Seen) Urine Glucose Normal mg/dL (Normal) Labs and/or images reviewed: Labs reviewed by me, Image(s) reviewed by me Assessment/Plan Assessment/Plan Impression: -acute hypoxic respiratory failure -left lung mass with multiple pulmonary nodules to bilateral lungs. Rule out lung CA -primary hypertension -obesity -hypothyroidism -depression Plan: Events: MRI of the brain performed: Noted metastatic lesions. CT of abdomen and pelvis reveals probable metastasis to lumbar spine. Patient for bone scan today. -start Decadron 4 mg p.o. b.i.d. -CT scan of the abdomen and pelvis with contrast -potassium replacement -Oncology recommendations reviewed. -repeat labs in a.m. Total time spent with patient discussing and formulating plan of care: 35 minutes. This medical document was created using an electronic medical record system with [employer] dictation system. Although this document has been carefully reviewed, there may still be some phonetic and typographical errors. These areas are purely typographical due to imperfections of the software programs, and do not reflect any compromise in the patient's medical care. Plan discussed with: Patient, Other (RN) My Orders Orders - YAMILE BUSH NP Procedure Category Date Status Time Chest Portable XY 04/01/24 Resulted 17:30 Date of Service: Apr 02, 2024 Billing Provider: YAMILE BUSH NP Common Visit Codes: [id number] INP/OBS CARE(HIGH) YAMILE BUSH NP Apr 02, 2024 15:22
--- NOTE | 2024-04-02 16:31 | DVH ---
EXAM: NM BONE WHOLE BODY History: r/o mets Comparison Study: CT abdomen/pelvis from 04/01/2024 TECHNIQUE: At approximately 3 hours following intravenous administration 24.3 mCi of Tc-99m MDP, ante rior and posterior whole body planar images were obtained. FINDINGS: Two foci of radiotracer activity are noted in the lower lumbar spine, possibly L4 and L5. Subtle focu s in the right mid femoral diaphysis. Physiologic radiotracer distribution in bilateral kidneys and urinary bladder. Degenerative changes in the shoulders, knees, and ankles. IMPRESSION: 1. Two foci of radiotracer activity are noted in the lower lumbar spine, possibly L4 and L5, which ma y reflect osteoblastic metastatic disease. 2. Subtle focal uptake in the right mid femoral diaphysis, nonspecific. Attention on follow up.
[2024-04-02] MEDS: levoFLOXacin 500MG 100 ML IV SCH (17:22)
[2024-04-02] MEDS: DexAMETHasone 4 MG TAB PO SCH (23:01)
[2024-04-03] VITALS (10 sets, daily range): BP systolic 108–142; BP diastolic 74–99; PULSE 74–91; RESP 14–20; TEMP 97.6–98.7; O2SAT 93–95
[2024-04-03 08:28] LABS: Basophils # (auto) 0 10 ^3/uL (0-0.2); Basophils % (auto) 0.1 % (0.0-2.0); Eosinophils # (auto) 0 10 ^3/uL (0-0.8); Eosinophils % (auto) 0.1 % (0.0-7.0); Hemoglobin 13.7 g/dL (12.2-16.2); Lymphocytes # (auto) 0.6 10 ^3/uL (0.4-5.4); Lymphocytes % (auto) 6.9 % (10.0-50.0); Mean Corpuscular Hemoglobin 27.4 pg (28.0-32.0); Mean Corpuscular Hgb Conc. 32.6 g/dL (32.0-36.0); Mean Corpuscular Volume 84.2 fL (80.0-100.0); Monocytes # (auto) 0.2 10 ^3/uL (0-1.3); Monocytes % (auto) 2.2 % (0.0-12.0); Neutrophils % (auto) 90.7 % (37.0-80.0); Platelet Count (auto) 437 10^3/uL (140-450); Red Blood Cells 4.99 10^6/uL (4.0-5.20); Red Cell Distribution Width 14.9 % (11.8-14.3); White Blood Cell 8.8 10^3/uL (4.4-10.8)
[2024-04-03 08:52] LABS: Chloride 99 mmol/L (98-107); Potassium 4.4 mmol/L (3.5-5.1); Sodium 137 mmol/L (136-145)
[2024-04-03 08:53] LABS: Anion Gap 7 (5-15); Carbon Dioxide 31 mmol/L (20-31)
[2024-04-03 08:59] LABS: BUN/Creatinine Ratio 16.1 (10.0-20.0); Blood Urea Nitrogen 10 mg/dL (9-23); Glucose 120 mg/dL (74-106)
--- NOTE | 2024-04-03 09:00 | DVHPN2 ---
Subjective Patient reports having shortness of breath, generalized weakness. Reviewed: Care Plan, H&P, Labs, Medications Changes from previous H/P or p: No Changes General: Per HPI Objective Vitals Vital Signs Date Time Temp Pulse Resp B/P (MAP) Pulse Ox O2 Delivery O2 Flow Rate FiO2 04/03/24 08:35 108/74 04/03/24 07:13 95 Nasal Cannula 2.0 04/03/24 07:13 28 04/03/24 05:00 98.2 85 20 98.2 Intake/Output Intake and Output 04/03/24 07:00 Intake Total 1400 ml Balance 1400 ml Intake Oral 1400 ml # Voids 5 # Bowel Movements 1 General Appearance: Alert, Oriented X3, Cooperative, mild distress HEENT: Atraumatic, PERRLA Lungs: Normal air movement, Other (Decreased Breath sounds in left lower lobe) Cardiovascular: Normal S1, Normal S2 Abdomen: Normal bowel sounds Musculoskeletal: Normal sensory function, Normal motor function Extremities: No clubbing, No cyanosis Neuro: Normal gait, Normal speech Psych/Mental Status: Mental status NL, Mood NL Medications Current Medications Medications Dose Ordered Sig/Lizzette Route Start Time Stop Time Status Last Admin Dose Admin Albuterol 2.5 mg Q6HPRN PRN NEB 03/31/24 21:30 Ipratropium [place] 0.5 mg Q6HPRN PRN NEB 03/31/24 21:30 Amlodipine Besylate 5 mg DAILY PO 04/01/24 10:00 04/03/24 08:35 5 MG Acetaminophen/ Hydrocodone Bitart 1 tab Q4HP PRN PO 03/31/24 21:30 Ondansetron HCl 4 mg Q4HP PRN IV 03/31/24 21:30 Acetaminophen 650 mg Q6HP PRN PO 03/31/24 21:30 Dexamethasone 4 mg Q12HR PO 04/02/24 22:00 04/03/24 08:34 4 MG Levofloxacin/ Dextrose 100 ml @ 100 mls/hr DAILY IV 04/02/24 15:37 04/03/24 08:34 100 MLS/HR Laboratory Results Laboratory Tests 04/03/24 07:16 Chemistry Test 04/03/24 07:16 Calcium Level Pending Urinalysis Test 03/31/24 17:01 Urine Color Yellow (Yellow) Urine Clarity Turbid (Clear) H Urine pH 6.0 (5.0-9.0) Urine Specific [place] 1.030 (1.001-1.035) Urine Protein 1+ (Negative) H Urine Ketones Trace (Negative) Urine Blood Negative /uL (Negative) Urine Nitrite Negative (Negative) Urine Bilirubin Negative (Negative) Urine Urobilinogen 2 mg/dL (Negative) H Urine Leukocyte Esterase 3+ /uL (Negative) Urine RBC 16 /hpf (0 - 4) Urine WBC 20 /hpf (0 - 5) Urine Squamous Epithelial Cells Mod /hpf (<5) Urine Bacteria Few /hpf (None Seen) H Urine Hyaline Casts Many /lpf (0 - 2) Urine Mucus Few (None Seen) Urine Glucose Normal mg/dL (Normal) Labs and/or images reviewed: Labs reviewed by me, Image(s) reviewed by me Assessment/Plan Assessment/Plan Impression: -acute hypoxic respiratory failure -left lung mass with multiple pulmonary nodules to bilateral lungs. Rule out lung CA -primary hypertension -obesity -hypothyroidism -depression Plan: Events: MRI of the brain performed: Noted metastatic lesions. CT of abdomen and pelvis reveals probable metastasis to lumbar spine. Bone scan positive for metastatic disease to L4/S5. -continue Decadron 4 mg p.o. b.i.d. -O2 supplementation to keep saturation greater than 92% -Oncology recommendations reviewed. -social service consultation for assistance with discharge planning, emergency [facility] Total time spent with patient and family regarding advance care plannin minutes. Total time spent with patient discussing and formulating plan of care: 35 minutes. This medical document was created using an electronic medical record system with [employer] dictation system. Although this document has been carefully reviewed, there may still be some phonetic and typographical errors. These areas are purely typographical due to imperfections of the software programs, and do not reflect any compromise in the patient's medical care. Plan discussed with: Patient, Other (RN) My Orders Orders - YAMILE BUSH NP Procedure Category Date Status Time Basic Metabolic Panel LAB 04/03/24 In Process 04:00 Dexamethasone Tablet PHA 04/02/24 In Process (Decadron Tablet) 22:00 Levofloxacin 500mg PHA 04/02/24 In Process (Levaquin 500mg/ 100m 15:37 Date of Service: Apr 03, 2024 Billing Provider: YAMILE BUSH NP Common Visit Codes: [id number] INP/OBS CARE(HIGH) Secondary Visit Codes: [id number] CARE PLAN 30 MINUTES YAMILE BUSH NP Apr 03, 2024 09:00
--- NOTE | 2024-04-03 11:10 | DVHPN2 ---
Progress Note - Dictate Date Seen: Apr 03, 2024 Has the PT tested + for MRSA If YES, has PT been informed?: Yes Medical Necessity Reason Pt with a Central, PICC or Fol: No Subjective The patient is feeling well. No headaches nausea vomiting. vital signs Vital Sign Date Time Temp Pulse Resp B/P (MAP) Pulse Ox O2 Delivery O2 Flow Rate FiO2 04/03/24 09:00 97.6 74 18 108/74 (85) 94 97.6 04/03/24 07:13 Nasal Cannula 2.0 04/03/24 07:13 28 Total Intake and Output 04/02/24 04/02/24 04/03/24 15:00 23:00 07:00 Intake Total 800 ml 600 ml Balance 800 ml 600 ml medications Current Medications Medications Dose Ordered Sig/Lizzette Route Start Time Stop Time Status Last Admin Dose Admin Albuterol 2.5 mg Q6HPRN PRN NEB 03/31/24 21:30 Ipratropium [place] 0.5 mg Q6HPRN PRN NEB 03/31/24 21:30 Amlodipine Besylate 5 mg DAILY PO 04/01/24 10:00 04/03/24 08:35 5 MG Acetaminophen/ Hydrocodone Bitart 1 tab Q4HP PRN PO 03/31/24 21:30 Ondansetron HCl 4 mg Q4HP PRN IV 03/31/24 21:30 Acetaminophen 650 mg Q6HP PRN PO 03/31/24 21:30 Dexamethasone 4 mg Q12HR PO 04/02/24 22:00 04/03/24 08:34 4 MG Levofloxacin/ Dextrose 100 ml @ 100 mls/hr DAILY IV 04/02/24 15:37 04/03/24 08:34 100 MLS/HR objective HEAD AND NECK: Unremarkable. No neck nodes or masses. Conjunctiva: Unremarkable. No mucosal hemorrhage. CHEST: Chest wall, no tenderness. LUNGS: Clear. CARDIOVASCULAR: Regular sinus rhythm. No murmurs or gallops. ABDOMEN: No organomegaly, tenderness or ascites. Bowel sounds present. LYMPHATICS: No significant lymphadenopathy. SKIN: Unremarkable for any petechiae, purpura, or ecchymosis. Psych: No abnormalities Available data reviewed laboratory and microbiology Laboratory Tests 04/03/24 07:16 Test 04/03/24 07:16 Range/Units Serum Glucose 120 H 74-106 mg/dL Assessment/Plan 1. Large left hilar mass and large mass replacing most of the left lower lung with extensive bilateral pulmonary nodules and the largest measuring 2.4 cm in the right lower lobe. Mediastinal and bilateral hilar lymphadenopathy. CT of the abdomen pelvis was unremarkable Status post CT-guided needle biopsy of the left lower lung mass on 04/01/2024 and the report is pending . Weight loss of 20 Pounds, dry coughing and shortness of breath 04/02/2024: MRI of the brain with and without IV contrast showed left occipital lobe with vasogenic edema most suspicious for metastatic disease. Additional smaller enhancing lesions in the left parietal lobe also suspicious for metastatic disease. The largest lesion measures 7 x 6 x 6 mm 04/02/2024: The bone scan showed 2 foci of radiotracer activity in the lower lumbar spine possibly L4 and L5 which may reflect osteoblastic metastatic disease. Subtle focal uptake in the right mid femoral diaphysis, nonspecific 2. History of hypertension Plan: Decadron 4 mg p.o. twice daily PC Waiting for the pathology report The patient will need radiation therapy to the brain She will need the systemic treatment depending on the pathology Dietary Evaluation Review Comments: follow her diet regimen, monitor PO intake to meet 75% Expected Outcomes/Goals: gradual weight loss. establish an independent living life style. Plan discussed with: Patient YULIA MOSER MD Apr 03, 2024 11:10
[2024-04-04] VITALS (9 sets, daily range): BP systolic 122–133; BP diastolic 72–83; PULSE 59–89; RESP 14–20; TEMP 97.6–98.2; O2SAT 94–98
--- NOTE | 2024-04-04 10:19 | DVHPN2 ---
Subjective Reports that her shortness of breath has improved. Reviewed: Care Plan, H&P, Labs, Medications Changes from previous H/P or p: Changes General: Per HPI Objective Vitals Vital Signs Date Time Temp Pulse Resp B/P (MAP) Pulse Ox O2 Delivery O2 Flow Rate FiO2 04/04/24 09:35 122/72 04/04/24 08:46 98.2 59 14 98 98.2 04/04/24 07:30 Nasal Cannula* 2 28 Intake/Output Intake and Output 04/04/24 07:00 Intake Total 1250 ml Balance 1250 ml Intake Oral 1150 ml IV Total 100 ml # Voids 5 General Appearance: Alert, Oriented X3, Cooperative, mild distress HEENT: Atraumatic, PERRLA Lungs: Normal air movement, Other (Decreased Breath sounds in left lower lobe) Cardiovascular: Normal S1, Normal S2 Abdomen: Normal bowel sounds Musculoskeletal: Normal sensory function, Normal motor function Extremities: No clubbing, No cyanosis Neuro: Normal gait, Normal speech Psych/Mental Status: Mental status NL, Mood NL Medications Current Medications Medications Dose Ordered Sig/Lizzette Route Start Time Stop Time Status Last Admin Dose Admin Albuterol 2.5 mg Q6HPRN PRN NEB 03/31/24 21:30 Ipratropium [place] 0.5 mg Q6HPRN PRN NEB 03/31/24 21:30 Amlodipine Besylate 5 mg DAILY PO 04/01/24 10:00 04/04/24 09:35 5 MG Acetaminophen/ Hydrocodone Bitart 1 tab Q4HP PRN PO 03/31/24 21:30 Ondansetron HCl 4 mg Q4HP PRN IV 03/31/24 21:30 Acetaminophen 650 mg Q6HP PRN PO 03/31/24 21:30 Dexamethasone 4 mg Q12HR PO 04/02/24 22:00 04/04/24 09:35 4 MG Levofloxacin/ Dextrose 100 ml @ 100 mls/hr DAILY IV 04/02/24 15:37 04/04/24 09:36 100 MLS/HR Amlodipine Besylate 5 mg DAILY PO 04/04/24 10:00 UNV Levothyroxine Sodium 88 mcg QAM PO 04/05/24 07:00 UNV Patient Own Medication 1 tab DAILY PO 04/04/24 10:00 UNV Laboratory Results Laboratory Tests 04/03/24 07:16 Urinalysis Test 03/31/24 17:01 Urine Color Yellow (Yellow) Urine Clarity Turbid (Clear) H Urine pH 6.0 (5.0-9.0) Urine Specific [place] 1.030 (1.001-1.035) Urine Protein 1+ (Negative) H Urine Ketones Trace (Negative) Urine Blood Negative /uL (Negative) Urine Nitrite Negative (Negative) Urine Bilirubin Negative (Negative) Urine Urobilinogen 2 mg/dL (Negative) H Urine Leukocyte Esterase 3+ /uL (Negative) Urine RBC 16 /hpf (0 - 4) Urine WBC 20 /hpf (0 - 5) Urine Squamous Epithelial Cells Mod /hpf (<5) Urine Bacteria Few /hpf (None Seen) H Urine Hyaline Casts Many /lpf (0 - 2) Urine Mucus Few (None Seen) Urine Glucose Normal mg/dL (Normal) Labs and/or images reviewed: Labs reviewed by me, Image(s) reviewed by me Assessment/Plan Assessment/Plan Impression: -acute hypoxic respiratory failure -left lung mass with multiple pulmonary nodules to bilateral lungs. Rule out lung CA -primary hypertension -obesity -hypothyroidism -depression Plan: Events: No events overnight. -assess patient off of oxygen. Please ambulate the patient -restart thyroid supplementation. -MRI of the brain performed: Noted metastatic lesions. CT of abdomen and pelvis reveals probable metastasis to lumbar spine. Bone scan positive for metastatic disease to L4/S5. -continue Decadron 4 mg p.o. b.i.d. -O2 supplementation to keep saturation greater than 92% -Oncology recommendations reviewed. -social service consultation for assistance with discharge planning, emergency [facility] Total time spent with patient discussing and formulating plan of care: 35 minutes. This medical document was created using an electronic medical record system with [employer] dictation system. Although this document has been carefully reviewed, there may still be some phonetic and typographical errors. These areas are purely typographical due to imperfections of the software programs, and do not reflect any compromise in the patient's medical care. Plan discussed with: Patient, Other (RN) My Orders Orders - YAMILE BUSH NP Procedure Category Date Status Time Communication Order ORDERS 04/04/24 Transmitted 09:55 Basic Metabolic Panel LAB 04/04/24 Logged 09:59 Thyroid Stimulating LAB 04/04/24 Logged Hormone 09:59 Amlodipine Tablet PHA 04/04/24 Logged (Norvasc Tablet) 10:00 Levothyroxine Tablet PHA 04/05/24 Logged (Synthroid Tablet) 07:00 (Nf) Escitalopram PHA 04/04/24 Logged Oxalate 10:00 Date of Service: Apr 04, 2024 Billing Provider: YAMILE BUSH NP Common Visit Codes: [id number] INP/OBS CARE(HIGH) YAMILE BUSH NP Apr 04, 2024 10:19
[2024-04-04 11:14] LABS: Chloride 100 mmol/L (98-107); Potassium 3.9 mmol/L (3.5-5.1); Sodium 137 mmol/L (136-145)
[2024-04-04 11:15] LABS: Anion Gap 7 (5-15); Carbon Dioxide 30 mmol/L (20-31)
[2024-04-04 11:20] LABS: Blood Urea Nitrogen 13 mg/dL (9-23); Glucose 148 mg/dL (74-106)
--- NOTE | 2024-04-04 12:47 | MEDREC ---
[facility] Intervention Section I [facility] Intervention: Review courses of therapy (PATIENT HAS BEEN ON LEVOFLOXACIN FOR 5 DAYS. PLEASE CONSIDER DISCONTINUE OR DE-ESCALATE ANTIBIOTIC IF THERE IS NO MORE INFECTION CONCERNS ) [facility] Apr 04, 2024 12:47
[2024-04-05] VITALS (9 sets, daily range): BP systolic 117–144; BP diastolic 73–78; PULSE 58–81; RESP 17–19; TEMP 97.7–98.6; O2SAT 95–98
[2024-04-05] MEDS: LEVOTHYROXINE SODIUM 88 MCG TAB PO SCH (06:04)
[2024-04-05] MEDS: fentaNYL CITRATE 100 MCG/2 ML VL IV ONE (07:32)
[2024-04-05] MEDS: LIDOCAINE 2%HCL (LOCAL ANESTH.) INJ 10ml MDV ONE (07:32)
[2024-04-05] MEDS: MIDAZOLAM HCL 2MG/2ML 2ml VIAL (1mg/ml) IV ONE (07:32)
[2024-04-05] MEDS: fentaNYL CITRATE 100 MCG/2 ML VL ONE (07:33)
[2024-04-05] MEDS: IOHEXOL 300 MG/ML 100ML BOTTLE IJ ONE (07:33)
[2024-04-05] MEDS: GADOTERATE MEG 10 MMOL/20ml INJ (0.5MMOL/ml) IV ONE (07:33)
[2024-04-05] MEDS: MIDAZOLAM HCL 2MG/2ML 2ml VIAL (1mg/ml) ONE (07:33)
[2024-04-05] MEDS: amLODIPine BESYLATE 5 MG TAB PO SCH (09:31)
[2024-04-05] MEDS: CITALOPRAM HYDROBR 20 MG TAB PO SCH (09:31)
--- NOTE | 2024-04-05 14:36 | DVHPN2 ---
Subjective The patient seen and examined at bedside. The patient has no complains. Reviewed: Care Plan, H&P, Labs, Medications Changes from previous H/P or p: No Changes General: Per HPI Objective Vitals Vital Signs Date Time Temp Pulse Resp B/P (MAP) Pulse Ox O2 Delivery O2 Flow Rate FiO2 04/05/24 13:26 97.7 75 17 117/73 (88) 95 97.7 04/05/24 10:20 Nasal Cannula* 2 28 Intake/Output Intake and Output 04/05/24 07:00 Intake Total 1300 ml Balance 1300 ml Intake Oral 1200 ml IV Total 100 ml # Voids 6 # Bowel Movements 1 General Appearance: Alert, Oriented X3, Cooperative, mild distress HEENT: Atraumatic, PERRLA Lungs: Normal air movement, Other (Decreased Breath sounds in left lower lobe) Cardiovascular: Normal S1, Normal S2 Abdomen: Normal bowel sounds Musculoskeletal: Normal sensory function, Normal motor function Extremities: No clubbing, No cyanosis Neuro: Normal gait, Normal speech Psych/Mental Status: Mental status NL, Mood NL Medications Current Medications Medications Dose Ordered Sig/Lizzette Route Start Time Stop Time Status Last Admin Dose Admin Albuterol 2.5 mg Q6HPRN PRN NEB 03/31/24 21:30 Ipratropium [place] 0.5 mg Q6HPRN PRN NEB 03/31/24 21:30 Acetaminophen/ Hydrocodone Bitart 1 tab Q4HP PRN PO 03/31/24 21:30 Ondansetron HCl 4 mg Q4HP PRN IV 03/31/24 21:30 Acetaminophen 650 mg Q6HP PRN PO 03/31/24 21:30 Dexamethasone 4 mg Q12HR PO 04/02/24 22:00 04/05/24 09:31 4 MG Levofloxacin/ Dextrose 100 ml @ 100 mls/hr DAILY IV 04/02/24 15:37 04/05/24 09:30 100 MLS/HR Amlodipine Besylate 5 mg DAILY PO 04/05/24 10:00 04/05/24 09:31 5 MG Levothyroxine Sodium 88 mcg QAM PO 04/05/24 07:00 04/05/24 06:04 88 MCG Citalopram Hydrobromide 40 mg DAILY PO 04/05/24 10:00 04/05/24 09:31 40 MG Laboratory Results Laboratory Tests 04/03/24 07:16 04/04/24 10:30 Urinalysis Test 03/31/24 17:01 Urine Color Yellow (Yellow) Urine Clarity Turbid (Clear) H Urine pH 6.0 (5.0-9.0) Urine Specific [place] 1.030 (1.001-1.035) Urine Protein 1+ (Negative) H Urine Ketones Trace (Negative) Urine Blood Negative /uL (Negative) Urine Nitrite Negative (Negative) Urine Bilirubin Negative (Negative) Urine Urobilinogen 2 mg/dL (Negative) H Urine Leukocyte Esterase 3+ /uL (Negative) Urine RBC 16 /hpf (0 - 4) Urine WBC 20 /hpf (0 - 5) Urine Squamous Epithelial Cells Mod /hpf (<5) Urine Bacteria Few /hpf (None Seen) H Urine Hyaline Casts Many /lpf (0 - 2) Urine Mucus Few (None Seen) Urine Glucose Normal mg/dL (Normal) Labs and/or images reviewed: Labs reviewed by me Assessment/Plan Assessment/Plan -acute hypoxic respiratory failure -left lung mass with multiple pulmonary nodules to bilateral lungs. Rule out lung CA -primary hypertension -obesity -hypothyroidism -depression Plan: Continue current management. Advise the patient to be out of bed and ambulate. MRI of the brain performed: Noted metastatic lesions. CT of abdomen and pelvis reveals probable metastasis to lumbar spine. Bone scan positive for metastatic disease to L4/[id number] decadron 4mg PO bid Continue oxygen supplement. Plan discussed with: Patient Date of Service: Apr 05, 2024 Billing Provider: CHRIST MORENO MD Common Visit Codes: [id number] INP/OBS CARE(HIGH) CHRIST MORENO MD Apr 05, 2024 14:36
[2024-04-06] VITALS (7 sets, daily range): BP systolic 122–143; BP diastolic 76–80; PULSE 61–72; RESP 16–18; TEMP 97.6–98.4; O2SAT 96–98
[2024-04-06] MEDS: DexAMETHasone 4 MG TAB PO SCH (01:03)
[2024-04-06] MEDS ORDERED: DexAMETHasone 4 MG TAB PO SCH (10:00)
--- NOTE | 2024-04-06 23:13 | DVHPN2 ---
Subjective The patient seen and examined at bedside. No complains today. Reviewed: Care Plan, H&P, Labs, Medications Changes from previous H/P or p: No Changes General: Per HPI Objective Vitals Vital Signs Date Time Temp Pulse Resp B/P (MAP) Pulse Ox O2 Delivery O2 Flow Rate FiO2 04/06/24 17:00 98.4 68 16 125/76 (92) 96 98.4 04/06/24 10:00 Nasal Cannula 1.0 04/06/24 10:00 24 Intake/Output Intake and Output 04/06/24 07:00 Intake Total 1300 ml Balance 1300 ml Intake Oral 1200 ml IV Total 100 ml # Voids 4 # Bowel Movements 1 General Appearance: Alert, Oriented X3, Cooperative, mild distress HEENT: Atraumatic, PERRLA Lungs: Normal air movement, Other (Decreased Breath sounds in left lower lobe) Cardiovascular: Normal S1, Normal S2 Abdomen: Normal bowel sounds Musculoskeletal: Normal sensory function, Normal motor function Extremities: No clubbing, No cyanosis Neuro: Normal gait, Normal speech Psych/Mental Status: Mental status NL, Mood NL Medications Current Medications Medications Dose Ordered Sig/Lizzette Route Start Time Stop Time Status Last Admin Dose Admin Albuterol 2.5 mg Q6HPRN PRN NEB 03/31/24 21:30 Cancel Ipratropium [place] 0.5 mg Q6HPRN PRN NEB 03/31/24 21:30 Cancel Acetaminophen/ Hydrocodone Bitart 1 tab Q4HP PRN PO 03/31/24 21:30 Ondansetron HCl 4 mg Q4HP PRN IV 03/31/24 21:30 Acetaminophen 650 mg Q6HP PRN PO 03/31/24 21:30 Levofloxacin/ Dextrose 100 ml @ 100 mls/hr DAILY IV 04/02/24 15:37 04/06/24 09:36 100 MLS/HR Amlodipine Besylate 5 mg DAILY PO 04/05/24 10:00 04/06/24 08:42 5 MG Levothyroxine Sodium 88 mcg QAM PO 04/05/24 07:00 04/06/24 06:09 88 MCG Citalopram Hydrobromide 40 mg DAILY PO 04/05/24 10:00 04/06/24 08:41 40 MG Dexamethasone 4 mg Q12HR PO 04/06/24 01:00 04/06/24 22:15 4 MG Laboratory Results Laboratory Tests 04/03/24 07:16 04/04/24 10:30 Urinalysis Test 03/31/24 17:01 Urine Color Yellow (Yellow) Urine Clarity Turbid (Clear) H Urine pH 6.0 (5.0-9.0) Urine Specific [place] 1.030 (1.001-1.035) Urine Protein 1+ (Negative) H Urine Ketones Trace (Negative) Urine Blood Negative /uL (Negative) Urine Nitrite Negative (Negative) Urine Bilirubin Negative (Negative) Urine Urobilinogen 2 mg/dL (Negative) H Urine Leukocyte Esterase 3+ /uL (Negative) Urine RBC 16 /hpf (0 - 4) Urine WBC 20 /hpf (0 - 5) Urine Squamous Epithelial Cells Mod /hpf (<5) Urine Bacteria Few /hpf (None Seen) H Urine Hyaline Casts Many /lpf (0 - 2) Urine Mucus Few (None Seen) Urine Glucose Normal mg/dL (Normal) Labs and/or images reviewed: Labs reviewed by me Assessment/Plan Assessment/Plan -acute hypoxic respiratory failure -left lung mass with multiple pulmonary nodules to bilateral lungs. Rule out lung CA -primary hypertension -obesity -hypothyroidism -depression Plan: Continue current management. Advise the patient to be out of bed and ambulate. MRI of the brain performed: Noted metastatic lesions. CT of abdomen and pelvis reveals probable metastasis to lumbar spine. Bone scan positive for metastatic disease to L4/[id number] decadron 4mg PO bid Continue oxygen supplement. Plan discussed with: Patient Date of Service: Apr 06, 2024 Billing Provider: CHRIST MORENO MD Common Visit Codes: [id number] INP/OBS CARE(HIGH) CHRIST MORENO MD Apr 06, 2024 23:13
[2024-04-07] VITALS (8 sets, daily range): BP systolic 118–130; BP diastolic 71–84; PULSE 60–73; RESP 16–18; TEMP 97.5–97.9; O2SAT 95–97
--- NOTE | 2024-04-07 13:22 | DVHPN2 ---
Subjective Reports that her shortness of breath has improved. Reviewed: Care Plan, H&P, Labs, Medications Changes from previous H/P or p: No Changes General: Per HPI Objective Vitals Vital Signs Date Time Temp Pulse Resp B/P (MAP) Pulse Ox O2 Delivery O2 Flow Rate FiO2 04/07/24 10:49 130/84 04/07/24 08:50 97.7 60 16 96 97.7 04/06/24 20:00 Nasal Cannula* 1 24 Intake/Output Intake and Output 04/07/24 07:00 Intake Total 1770 ml Balance 1770 ml Intake Oral 1670 ml IV Total 100 ml # Voids 5 # Bowel Movements 2 General Appearance: Alert, Oriented X3, Cooperative, mild distress HEENT: Atraumatic, PERRLA Lungs: Normal air movement, Other (Decreased Breath sounds in left lower lobe) Cardiovascular: Normal S1, Normal S2 Abdomen: Normal bowel sounds Musculoskeletal: Normal sensory function, Normal motor function Extremities: No clubbing, No cyanosis Neuro: Normal gait, Normal speech Psych/Mental Status: Mental status NL, Mood NL Medications Current Medications Medications Dose Ordered Sig/Lizzette Route Start Time Stop Time Status Last Admin Dose Admin Albuterol 2.5 mg Q6HPRN PRN NEB 03/31/24 21:30 Cancel Ipratropium [place] 0.5 mg Q6HPRN PRN NEB 03/31/24 21:30 Cancel Acetaminophen/ Hydrocodone Bitart 1 tab Q4HP PRN PO 03/31/24 21:30 Ondansetron HCl 4 mg Q4HP PRN IV 03/31/24 21:30 Acetaminophen 650 mg Q6HP PRN PO 03/31/24 21:30 Amlodipine Besylate 5 mg DAILY PO 04/05/24 10:00 04/07/24 10:49 5 MG Levothyroxine Sodium 88 mcg QAM PO 04/05/24 07:00 04/07/24 06:34 88 MCG Citalopram Hydrobromide 40 mg DAILY PO 04/05/24 10:00 04/07/24 10:48 40 MG Dexamethasone 4 mg Q12HR PO 04/06/24 01:00 04/07/24 10:49 4 MG Laboratory Results Laboratory Tests 04/03/24 07:16 04/04/24 10:30 Urinalysis Test 03/31/24 17:01 Urine Color Yellow (Yellow) Urine Clarity Turbid (Clear) H Urine pH 6.0 (5.0-9.0) Urine Specific [place] 1.030 (1.001-1.035) Urine Protein 1+ (Negative) H Urine Ketones Trace (Negative) Urine Blood Negative /uL (Negative) Urine Nitrite Negative (Negative) Urine Bilirubin Negative (Negative) Urine Urobilinogen 2 mg/dL (Negative) H Urine Leukocyte Esterase 3+ /uL (Negative) Urine RBC 16 /hpf (0 - 4) Urine WBC 20 /hpf (0 - 5) Urine Squamous Epithelial Cells Mod /hpf (<5) Urine Bacteria Few /hpf (None Seen) H Urine Hyaline Casts Many /lpf (0 - 2) Urine Mucus Few (None Seen) Urine Glucose Normal mg/dL (Normal) Labs and/or images reviewed: Labs reviewed by me, Image(s) reviewed by me Assessment/Plan Assessment/Plan Impression: -acute hypoxic respiratory failure -left lung mass with multiple pulmonary nodules to bilateral lungs. Rule out lung CA -primary hypertension -obesity -hypothyroidism -depression Plan: Events: No events overnight. Discontinue antibiotic therapy given full course provided. Patient reports having coverage [facility] for catastrophic events. Social service to follow up with this coverage. -assess patient off of oxygen. Please ambulate the patient -restart thyroid supplementation. -MRI of the brain performed: Noted metastatic lesions. CT of abdomen and pelvis reveals probable metastasis to lumbar spine. Bone scan positive for metastatic disease to L4/S5. -continue Decadron 4 mg p.o. b.i.d. -O2 supplementation to keep saturation greater than 92% -Oncology recommendations reviewed. -social service consultation for assistance with discharge planning, emergency [facility] Total time spent with patient discussing and formulating plan of care: 35 minutes. This medical document was created using an electronic medical record system with [employer] dictation system. Although this document has been carefully reviewed, there may still be some phonetic and typographical errors. These areas are purely typographical due to imperfections of the software programs, and do not reflect any compromise in the patient's medical care. Plan discussed with: Patient, Son, Other (RN) Date of Service: Apr 07, 2024 Billing Provider: YAMILE BUSH NP Common Visit Codes: [id number] INP/OBS CARE(HIGH) YAMILE BUSH NP Apr 07, 2024 13:21
[2024-04-08] VITALS (8 sets, daily range): BP systolic 118–128; BP diastolic 6–77; PULSE 56–74; RESP 16–20; TEMP 97.5–98; O2SAT 93–97
--- NOTE | 2024-04-08 08:32 | DVHPN2 ---
Progress Note - Dictate Date Seen: Apr 07, 2024 Has the PT tested + for MRSA If YES, has PT been informed?: Yes Medical Necessity Reason Pt with a Central, PICC or Fol: No Subjective The patient is feeling well. No headaches nausea vomiting. vital signs Vital Sign Date Time Temp Pulse Resp B/P (MAP) Pulse Ox O2 Delivery O2 Flow Rate FiO2 04/08/24 05:00 97.6 57 19 122/6 (44) 95 97.6 04/07/24 20:00 Nasal Cannula* 1 24 Total Intake and Output 04/07/24 04/07/24 04/08/24 15:00 23:00 07:00 Intake Total 240 ml 870 ml 700 ml Output Total 925 ml Balance 240 ml -55 ml 700 ml medications Current Medications Medications Dose Ordered Sig/Lizzette Route Start Time Stop Time Status Last Admin Dose Admin Albuterol 2.5 mg Q6HPRN PRN NEB 03/31/24 21:30 Cancel Ipratropium [place] 0.5 mg Q6HPRN PRN NEB 03/31/24 21:30 Cancel Acetaminophen/ Hydrocodone Bitart 1 tab Q4HP PRN PO 03/31/24 21:30 Ondansetron HCl 4 mg Q4HP PRN IV 03/31/24 21:30 Acetaminophen 650 mg Q6HP PRN PO 03/31/24 21:30 Amlodipine Besylate 5 mg DAILY PO 04/05/24 10:00 04/07/24 10:49 5 MG Levothyroxine Sodium 88 mcg QAM PO 04/05/24 07:00 04/08/24 06:36 88 MCG Citalopram Hydrobromide 40 mg DAILY PO 04/05/24 10:00 04/07/24 10:48 40 MG Dexamethasone 4 mg Q12HR PO 04/06/24 01:00 04/07/24 21:50 4 MG objective HEAD AND NECK: Unremarkable. No neck nodes or masses. Conjunctiva: Unremarkable. No mucosal hemorrhage. CHEST: Chest wall, no tenderness. LUNGS: Clear. CARDIOVASCULAR: Regular sinus rhythm. No murmurs or gallops. ABDOMEN: No organomegaly, tenderness or ascites. Bowel sounds present. LYMPHATICS: No significant lymphadenopathy. SKIN: Unremarkable for any petechiae, purpura, or ecchymosis. Psych: No abnormalities Available data reviewed laboratory and microbiology Laboratory Tests 04/04/24 10:30 04/03/24 07:16 Test 04/04/24 10:30 Range/Units Serum Glucose 148 H 74-106 mg/dL Assessment/Plan 1. Large left hilar mass and large mass replacing most of the left lower lung with extensive bilateral pulmonary nodules and the largest measuring 2.4 cm in the right lower lobe. Mediastinal and bilateral hilar lymphadenopathy. The lung biopsy showed adenocarcinoma of the lung moderately differentiated CT of the abdomen pelvis was unremarkable Weight loss of 20 Pounds, dry coughing and shortness of breath 04/02/2024: MRI of the brain with and without IV contrast showed left occipital lobe with vasogenic edema most suspicious for metastatic disease. Additional smaller enhancing lesions in the left parietal lobe also suspicious for metastatic disease. The largest lesion measures 7 x 6 x 6 mm 04/02/2024: The bone scan showed 2 foci of radiotracer activity in the lower lumbar spine possibly L4 and L5 which may reflect osteoblastic metastatic disease. Subtle focal uptake in the right mid femoral diaphysis, nonspecific 2. History of hypertension Plan: Decadron 4 mg p.o. twice daily PC The patient will need radiation therapy to the brain She will need the systemic treatment Port-A-Cath The patient could come follow up with me as an outpatient or could be followed at [facility] Dietary Evaluation Review Comments: follow her diet regimen, monitor PO intake to meet 75% Expected Outcomes/Goals: gradual weight loss. establish an independent living life style. Plan discussed with: Patient YULIA MOSER MD Apr 08, 2024 08:32
--- NOTE | 2024-04-08 14:48 | DVHPN2 ---
Subjective Reports that her shortness of breath has improved. Reviewed: Care Plan, H&P, Labs, Medications Changes from previous H/P or p: No Changes General: Per HPI Objective Vitals Vital Signs Date Time Temp Pulse Resp B/P (MAP) Pulse Ox O2 Delivery O2 Flow Rate FiO2 04/08/24 12:56 97.5 67 16 118/69 (85) 97 97.5 04/08/24 10:00 Room Air* 0 21 Intake/Output Intake and Output 04/08/24 07:00 Intake Total 1810 ml Output Total 925 ml Balance 885 ml Intake Oral 1810 ml Output Urine Total 925 ml # Voids 3 General Appearance: Alert, Oriented X3, Cooperative, mild distress HEENT: Atraumatic, PERRLA Lungs: Normal air movement, Other (Decreased Breath sounds in left lower lobe) Cardiovascular: Normal S1, Normal S2 Abdomen: Normal bowel sounds Musculoskeletal: Normal sensory function, Normal motor function Extremities: No clubbing, No cyanosis Neuro: Normal gait, Normal speech Psych/Mental Status: Mental status NL, Mood NL Medications Current Medications Medications Dose Ordered Sig/Lizzette Route Start Time Stop Time Status Last Admin Dose Admin Albuterol 2.5 mg Q6HPRN PRN NEB 03/31/24 21:30 Cancel Ipratropium [place] 0.5 mg Q6HPRN PRN NEB 03/31/24 21:30 Cancel Acetaminophen/ Hydrocodone Bitart 1 tab Q4HP PRN PO 03/31/24 21:30 Ondansetron HCl 4 mg Q4HP PRN IV 03/31/24 21:30 Acetaminophen 650 mg Q6HP PRN PO 03/31/24 21:30 Amlodipine Besylate 5 mg DAILY PO 04/05/24 10:00 04/08/24 09:28 5 MG Levothyroxine Sodium 88 mcg QAM PO 04/05/24 07:00 04/08/24 06:36 88 MCG Citalopram Hydrobromide 40 mg DAILY PO 04/05/24 10:00 04/08/24 09:27 40 MG Dexamethasone 4 mg Q12HR PO 04/06/24 01:00 04/08/24 09:27 4 MG Laboratory Results Laboratory Tests 04/03/24 07:16 04/04/24 10:30 Urinalysis Test 03/31/24 17:01 Urine Color Yellow (Yellow) Urine Clarity Turbid (Clear) H Urine pH 6.0 (5.0-9.0) Urine Specific [place] 1.030 (1.001-1.035) Urine Protein 1+ (Negative) H Urine Ketones Trace (Negative) Urine Blood Negative /uL (Negative) Urine Nitrite Negative (Negative) Urine Bilirubin Negative (Negative) Urine Urobilinogen 2 mg/dL (Negative) H Urine Leukocyte Esterase 3+ /uL (Negative) Urine RBC 16 /hpf (0 - 4) Urine WBC 20 /hpf (0 - 5) Urine Squamous Epithelial Cells Mod /hpf (<5) Urine Bacteria Few /hpf (None Seen) H Urine Hyaline Casts Many /lpf (0 - 2) Urine Mucus Few (None Seen) Urine Glucose Normal mg/dL (Normal) Labs and/or images reviewed: Labs reviewed by me, Image(s) reviewed by me Assessment/Plan Assessment/Plan Impression: -acute hypoxic respiratory failure -left lung mass with multiple pulmonary nodules to bilateral lungs. Rule out lung CA -primary hypertension -obesity -hypothyroidism -depression Plan: Events: No events overnight. -Port-A-Cath placement -next generation sequencing testing to be ordered for current biopsy -assess patient off of oxygen. Please ambulate the patient -restart thyroid supplementation. -MRI of the brain performed: Noted metastatic lesions. CT of abdomen and pelvis reveals probable metastasis to lumbar spine. Bone scan positive for metastatic disease to L4/S5. -continue Decadron 4 mg p.o. b.i.d. -O2 supplementation to keep saturation greater than 92% -Oncology recommendations reviewed. -social service consultation for assistance with discharge planning, emergency [facility] Total time spent with patient discussing and formulating plan of care: 35 minutes. This medical document was created using an electronic medical record system with [employer] dictation system. Although this document has been carefully reviewed, there may still be some phonetic and typographical errors. These areas are purely typographical due to imperfections of the software programs, and do not reflect any compromise in the patient's medical care. Plan discussed with: Patient, Other (RN) Date of Service: Apr 08, 2024 Billing Provider: YAMILE BUSH NP Common Visit Codes: [id number] INP/OBS CARE(HIGH) YAMILE BUSH NP Apr 08, 2024 14:48
[2024-04-09] VITALS (7 sets, daily range): BP systolic 111–129; BP diastolic 71–76; PULSE 60–67; RESP 16–19; TEMP 97.7–98.3; O2SAT 94–96
[2024-04-09 07:34] LABS: Basophils # (auto) 0 10 ^3/uL (0-0.2); Basophils % (auto) 0.3 % (0.0-2.0); Eosinophils # (auto) 0 10 ^3/uL (0-0.8); Eosinophils % (auto) 0.3 % (0.0-7.0); Hematocrit 42.2 % (36.0-46.0); Hemoglobin 13.9 g/dL (12.2-16.2); Lymphocytes # (auto) 0.9 10 ^3/uL (0.4-5.4); Lymphocytes % (auto) 6.9 % (10.0-50.0); Mean Corpuscular Hemoglobin 27.7 pg (28.0-32.0); Mean Corpuscular Hgb Conc. 32.8 g/dL (32.0-36.0); Mean Corpuscular Volume 84.2 fL (80.0-100.0); Monocytes # (auto) 0.6 10 ^3/uL (0-1.3); Monocytes % (auto) 4.4 % (0.0-12.0); Neutrophils # (auto) 11.5 10 ^3/uL (1.6-8.6); Neutrophils % (auto) 88.1 % (37.0-80.0); Nucleated Red Blood Cells % 0.1 %; Platelet Count (auto) 386 10^3/uL (140-450); Red Blood Cells 5.01 10^6/uL (4.0-5.20); White Blood Cell 13.1 10^3/uL (4.4-10.8)
[2024-04-09 07:39] LABS: Anion Gap 8 (5-15); Carbon Dioxide 27 mmol/L (20-31); Chloride 101 mmol/L (98-107); Potassium 4.3 mmol/L (3.5-5.1); Sodium 136 mmol/L (136-145)
[2024-04-09 07:40] LABS: Calcium 9.4 mg/dL (8.7-10.4)
[2024-04-09 07:45] LABS: BUN/Creatinine Ratio 29.4 (10.0-20.0); Blood Urea Nitrogen 15 mg/dL (9-23); Glucose 120 mg/dL (74-106)
[2024-04-09 07:59] LABS: INR 1.03 (0.9-1.15); Partial Thromboplastin Time 27.3 SEC (24.5-34.5); Prothrombin Time 10.9 sec (9.3-11.8)
--- NOTE | 2024-04-09 13:39 | DVHPN2 ---
Subjective Reports that her shortness of breath has improved. Reviewed: Care Plan, H&P, Labs, Medications Changes from previous H/P or p: No Changes General: Per HPI Objective Vitals Vital Signs Date Time Temp Pulse Resp B/P (MAP) Pulse Ox O2 Delivery O2 Flow Rate FiO2 04/09/24 10:23 116/74 04/09/24 10:00 95 Nasal Cannula* 1 24 04/09/24 08:58 97.7 60 19 97.7 Intake/Output Intake and Output 04/09/24 07:00 Intake Total 1780 ml Output Total 550 ml Balance 1230 ml Intake Oral 1780 ml Output Urine Total 550 ml # Voids 4 General Appearance: Alert, Oriented X3, Cooperative, mild distress HEENT: Atraumatic, PERRLA Lungs: Normal air movement, Other (Decreased Breath sounds in left lower lobe) Cardiovascular: Normal S1, Normal S2 Abdomen: Normal bowel sounds Musculoskeletal: Normal sensory function, Normal motor function Extremities: No clubbing, No cyanosis Neuro: Normal gait, Normal speech Psych/Mental Status: Mental status NL, Mood NL Medications Current Medications Medications Dose Ordered Sig/Lizzette Route Start Time Stop Time Status Last Admin Dose Admin Albuterol 2.5 mg Q6HPRN PRN NEB 03/31/24 21:30 Cancel Ipratropium [place] 0.5 mg Q6HPRN PRN NEB 03/31/24 21:30 Cancel Acetaminophen/ Hydrocodone Bitart 1 tab Q4HP PRN PO 03/31/24 21:30 Ondansetron HCl 4 mg Q4HP PRN IV 03/31/24 21:30 Acetaminophen 650 mg Q6HP PRN PO 03/31/24 21:30 Amlodipine Besylate 5 mg DAILY PO 04/05/24 10:00 04/09/24 10:23 5 MG Levothyroxine Sodium 88 mcg QAM PO 04/05/24 07:00 04/09/24 07:09 88 MCG Citalopram Hydrobromide 40 mg DAILY PO 04/05/24 10:00 04/09/24 10:22 40 MG Dexamethasone 4 mg Q12HR PO 04/06/24 01:00 04/09/24 10:22 4 MG Laboratory Results Laboratory Tests 04/09/24 06:41 Chemistry Test 04/09/24 06:41 Calcium Level 9.4 mg/dL (8.7-10.4) Coagulation Test 04/09/24 06:41 Prothrombin Time 10.9 sec (9.3-11.8) Prothrombin Time INR 1.03 (0.9-1.15) Activated Partial Thromboplast Time 27.3 SEC (24.5-34.5) Urinalysis Test 03/31/24 17:01 Urine Color Yellow (Yellow) Urine Clarity Turbid (Clear) H Urine pH 6.0 (5.0-9.0) Urine Specific [place] 1.030 (1.001-1.035) Urine Protein 1+ (Negative) H Urine Ketones Trace (Negative) Urine Blood Negative /uL (Negative) Urine Nitrite Negative (Negative) Urine Bilirubin Negative (Negative) Urine Urobilinogen 2 mg/dL (Negative) H Urine Leukocyte Esterase 3+ /uL (Negative) Urine RBC 16 /hpf (0 - 4) Urine WBC 20 /hpf (0 - 5) Urine Squamous Epithelial Cells Mod /hpf (<5) Urine Bacteria Few /hpf (None Seen) H Urine Hyaline Casts Many /lpf (0 - 2) Urine Mucus Few (None Seen) Urine Glucose Normal mg/dL (Normal) Labs and/or images reviewed: Labs reviewed by me, Image(s) reviewed by me Assessment/Plan Assessment/Plan Impression: -acute hypoxic respiratory failure -left lung mass with multiple pulmonary nodules to bilateral lungs. Rule out lung CA -primary hypertension -obesity -hypothyroidism -depression Plan: Events: No events overnight. -Port-A-Cath placement , pending surgical consultation. -next generation sequencing testing to be ordered for current biopsy -assess patient off of oxygen. Please ambulate the patient -restart thyroid supplementation. -MRI of the brain performed: Noted metastatic lesions. CT of abdomen and pelvis reveals probable metastasis to lumbar spine. Bone scan positive for metastatic disease to L4/S5. -continue Decadron 4 mg p.o. b.i.d. -O2 supplementation to keep saturation greater than 92% -Oncology recommendations reviewed. -social service consultation for assistance with discharge planning, emergency [facility] Total time spent with patient discussing and formulating plan of care: 35 minutes. This medical document was created using an electronic medical record system with [employer] dictation system. Although this document has been carefully reviewed, there may still be some phonetic and typographical errors. These areas are purely typographical due to imperfections of the software programs, and do not reflect any compromise in the patient's medical care. Plan discussed with: Patient, Other (RN) My Orders Orders - YAMILE BUSH NP Procedure Category Date Status Time * Surgical Consult CONS 04/08/24 Transmitted Date of Service: Apr 09, 2024 Billing Provider: YAMILE BUSH NP Common Visit Codes: [id number] INP/OBS CARE(HIGH) YAMILE BUSH NP Apr 09, 2024 13:39
[2024-04-10] VITALS (7 sets, daily range): BP systolic 109–133; BP diastolic 59–72; PULSE 59–82; RESP 14–20; TEMP 97.6–98.1; O2SAT 91–96
[2024-04-10] MEDS ORDERED: ceFAZolin 2 GM/D5W100ml 100 ML IV ONE (07:12)
[2024-04-10 07:36] LABS: INR 1.03 (0.9-1.15); Partial Thromboplastin Time 27.3 SEC (24.5-34.5); Prothrombin Time 10.9 sec (9.3-11.8)
[2024-04-10 07:39] LABS: Basophils # (auto) 0 10 ^3/uL (0-0.2); Basophils % (auto) 0.2 % (0.0-2.0); Eosinophils # (auto) 0 10 ^3/uL (0-0.8); Eosinophils % (auto) 0.1 % (0.0-7.0); Hematocrit 42.4 % (36.0-46.0); Hemoglobin 13.6 g/dL (12.2-16.2); Lymphocytes # (auto) 0.8 10 ^3/uL (0.4-5.4); Lymphocytes % (auto) 6.2 % (10.0-50.0); Mean Corpuscular Volume 84.4 fL (80.0-100.0); Monocytes # (auto) 0.6 10 ^3/uL (0-1.3); Monocytes % (auto) 4.4 % (0.0-12.0); Neutrophils # (auto) 11.6 10 ^3/uL (1.6-8.6); Neutrophils % (auto) 89.1 % (37.0-80.0); Platelet Count (auto) 404 10^3/uL (140-450); Red Blood Cells 5.03 10^6/uL (4.0-5.20); Red Cell Distribution Width 14.9 % (11.8-14.3); White Blood Cell 13.1 10^3/uL (4.4-10.8)
--- NOTE | 2024-04-10 07:44 | DVHINCON2 ---
Date of service: Apr 10, 2024 Family History: FH: lung cancer Allergies: Coded Allergies: Latex (Verified Allergy, Unknown, 04/01/24) Penicillins (Verified Allergy, Unknown, 03/31/24) Home Meds Reported Medications Escitalopram Oxalate (ESCITALOPRAM OXALATE) 20 Mg Tab, 1 TAB PO DAILY 04/01/24 Amlodipine Besylate (Amlodipine Besylate) 5 Mg Tab, 1 TAB PO DAILY 04/01/24 Levothyroxine Sodium (Levothyroxine Sodium) 88 Mcg Tab, 1 TAB PO QAM 04/01/24 Current Medications Current Medications Medications (Trade) Dose Ordered Sig/Lizzette Route PRN Reason Start Time Stop Time Status Last Admin Docusate Sodium (Colace Capsule) 100 mg BID PO 04/10/24 10:00 Vital Signs Vital Signs Date Time Temp Pulse Resp B/P (MAP) Pulse Ox O2 Delivery O2 Flow Rate FiO2 04/10/24 05:00 97.9 59 20 133/71 (91) 96 97.9 04/09/24 20:20 Nasal Cannula* 1 24 Labs/Diagnostic Data Labs Test 04/10/24 06:20 04/04/24 10:30 04/02/24 05:13 03/31/24 17:01 Range/Units White Blood Count 13.1 H 4.4-10.8 10^3/uL Red Blood Count 5.03 4.0-5.20 10^6/uL Hemoglobin 13.6 12.2-16.2 g/dL Hematocrit 42.4 36.0-46.0 % Mean Corpuscular Volume 84.4 80.0-100.0 fL Mean Corpuscular Hemoglobin 27.0 L 28.0-32.0 pg Mean Corpuscular Hemoglobin Concent 32.0 32.0-36.0 g/dL Red Cell Distribution Width 14.9 H 11.8-14.3 % Platelet Count 404 140-450 10^3/uL Mean Platelet Volume 7.7 6.9-10.8 fL Neutrophils (%) (Auto) 89.1 H 37.0-80.0 % Lymphocytes (%) (Auto) 6.2 L 10.0-50.0 % Monocytes (%) (Auto) 4.4 0.0-12.0 % Eosinophils (%) (Auto) 0.1 0.0-7.0 % Basophils (%) (Auto) 0.2 0.0-2.0 % Neutrophils # (Auto) 11.6 H 1.6-8.6 10 ^3/uL Lymphocytes # (Auto) 0.8 0.4-5.4 10 ^3/uL Monocytes # (Auto) 0.6 0-1.3 10 ^3/uL Eosinophils # (Auto) 0 0-0.8 10 ^3/uL Basophils # (Auto) 0 0-0.2 10 ^3/uL Nucleated Red Blood Cells 0.0 % Prothrombin Time 10.9 9.3-11.8 sec Prothrombin Time INR 1.03 0.9-1.15 Activated Partial Thromboplast Time 27.3 24.5-34.5 SEC Thyroid Stimulating Hormone (TSH) 1.73 0.55-4.78 uIU/mL Lactate Dehydrogenase 150 120-246 U/L Urine Color Yellow Yellow Urine Clarity Turbid H Clear Urine pH 6.0 5.0-9.0 Urine Specific [place] 1.030 1.001-1.035 Urine Protein 1+ H Negative Urine Ketones Trace Negative Urine Blood Negative Negative /uL Urine Nitrite Negative Negative Urine Bilirubin Negative Negative Urine Urobilinogen 2 H Negative mg/dL Urine Leukocyte Esterase 3+ Negative /uL Urine RBC 16 0 - 4 /hpf Urine WBC 20 0 - 5 /hpf Urine Squamous Epithelial Cells Mod <5 /hpf Urine Bacteria Few H None Seen /hpf Urine Hyaline Casts Many 0 - 2 /lpf Urine Mucus Few None Seen Urine Glucose Normal Normal mg/dL Assessment PATIENT HAS ADVANCED LUNG CANCER AND I WAS REQUESTED TO PLACE A PORTACATH, THE PROCEDURE,RISKS AND COMPLICATIONS EXPLAINED IN DETAIL. Plan discussed with: Patient HANNAH ARAUJO MD Apr 10, 2024 07:44
[2024-04-10 07:46] LABS: Alanine Aminotransferase 29 U/L (7-40); Albumin 4.1 g/dL (3.2-4.8); Alkaline Phosphatase 133 U/L (46-116); Anion Gap 11 (5-15); Aspartate Aminotransferase 13 U/L (13-40); BUN/Creatinine Ratio 24.1 (10.0-20.0); Blood Urea Nitrogen 13 mg/dL (9-23); Calcium 9.6 mg/dL (8.7-10.4); Carbon Dioxide 26 mmol/L (20-31); Chloride 99 mmol/L (98-107); Glucose 108 mg/dL (74-106); Potassium 4.4 mmol/L (3.5-5.1); Sodium 136 mmol/L (136-145)
[2024-04-10 07:47] LABS: Bilirubin, Total 0.5 mg/dL (0.2-1.0); Total Protein 6.6 g/dL (5.7-8.2)
[2024-04-10] MEDS ORDERED: HEPARIN SODIUM (PORCINE) 5000 UNITS/ML 1ML VIAL ONE (07:56)
[2024-04-10] MEDS ORDERED: HEPARIN 1,000 UNITS/ml 1ML VIAL ONE (07:58)
[2024-04-10] MEDS ORDERED: ceFAZolin 1GM VL ONE (07:58)
[2024-04-10] MEDS ORDERED: KETAMINE 50mg/ML 1ml syringe ONE (08:03)
[2024-04-10] MEDS ORDERED: MIDAZOLAM HCL 2MG/2ML 2ml VIAL (1mg/ml) ONE (08:04)
[2024-04-10] MEDS ORDERED: ONDANSETRON HCL 4 MG/2 ML VIAL ONE (08:04)
[2024-04-10] MEDS ORDERED: GLYCOPYRROLATE 0.2 MG/ML 1ML VIAL ONE (08:04)
[2024-04-10] MEDS ORDERED: PROPOFOL 10 MG/ML 20 ML IV ONE (08:04)
[2024-04-10] MEDS: DOCUSATE SOD 100 MG CAP PO SCH (09:46)
--- NOTE | 2024-04-10 12:09 | DVHSR ---
APPROVED REPORT EXAM: Two-dimensional and M-mode echocardiogram with Doppler and color Doppler. Blood Pressure: 125/71 mmHg INDICATION Heart block RISK FACTORS Height: 5'8", Weight: 185 DIMENSIONS LVDd4.1 (3.8-5.7cm)LA (2D)4.1 (1.9-4.0cm)Aortic Root3.2 (2.0-3.7cm) LVDs1.9 (2.5-4.0cm)LA (MM) (1.9-4.0cm)Aortic Cusp Exc2.0 (1.5-2.0cm) EF (%) 84.0 (55-70%)Rt. Atrium3.7 (1.9-4.0cm)Asc. Aorta3.6 cm IVSd1.2 (0.7-1.1cm)RV (D)3.9 (1.8-2.4cm) PWd1.1 (0.7-1.1cm) Mitral Valve MitralMitral Stenosis E wave0.88m/sMV Mean GR.mmHg A wave1.00m/sMV Peak GR.mmHg E/A ratio0.92D MVAcm2 DECEL [id number] 1/2 [place] Aortic Valve Aortic ValveAortic Stenosis V11.31m/Liz Mean GR.5mmHg V21.53m/Liz Peak GR.9mmHg LVOT Diameter2.0 (1.8-2.4cm)Doppler AVA2.69cm2 Pulmonic Valve V20.91m/s Conclusion Normal left ventricular size and dimension. Normal left ventricular systolic function estimated ejec tion fraction 60%. There is a grade diastolic dysfunction. Normal right ventricular size and dimension. Normal right ventricular systolic function. Normal biatrial size and dimension. Normal aortic valve structure and function. Normal mitral valve structure and function. There is [id number] tricuspid valve regurgitation. The pulmonary valve is grossly normal. No pericardial effusion.
--- NOTE | 2024-04-10 14:03 | DVHPN2 ---
Subjective Reports that her shortness of breath has improved. Reviewed: Care Plan, H&P, Labs, Medications Changes from previous H/P or p: No Changes General: Per HPI Objective Vitals Vital Signs Date Time Temp Pulse Resp B/P (MAP) Pulse Ox O2 Delivery O2 Flow Rate FiO2 04/10/24 13:00 97.6 60 14 121/72 (88) 95 97.6 04/10/24 10:00 Nasal Cannula 1.0 04/10/24 10:00 24 Intake/Output Intake and Output 04/10/24 07:00 Intake Total 1535 ml Output Total 450 ml Balance 1085 ml Intake Oral 1535 ml Output Urine Total 450 ml # Voids 4 General Appearance: Alert, Oriented X3, Cooperative, mild distress HEENT: Atraumatic, PERRLA Lungs: Normal air movement, Other (Decreased Breath sounds in left lower lobe) Cardiovascular: Normal S1, Normal S2 Abdomen: Normal bowel sounds Musculoskeletal: Normal sensory function, Normal motor function Extremities: No clubbing, No cyanosis Neuro: Normal gait, Normal speech Psych/Mental Status: Mental status NL, Mood NL Medications Current Medications Medications Dose Ordered Sig/Lizzette Route Start Time Stop Time Status Last Admin Dose Admin Albuterol 2.5 mg Q6HPRN PRN NEB 03/31/24 21:30 Cancel Ipratropium [place] 0.5 mg Q6HPRN PRN NEB 03/31/24 21:30 Cancel Ondansetron HCl 4 mg Q4HP PRN IV 03/31/24 21:30 Acetaminophen 650 mg Q6HP PRN PO 03/31/24 21:30 Amlodipine Besylate 5 mg DAILY PO 04/05/24 10:00 04/10/24 09:47 5 MG Levothyroxine Sodium 88 mcg QAM PO 04/05/24 07:00 04/10/24 05:56 88 MCG Citalopram Hydrobromide 40 mg DAILY PO 04/05/24 10:00 04/10/24 09:46 40 MG Dexamethasone 4 mg Q12HR PO 04/06/24 01:00 04/10/24 09:46 4 MG Docusate Sodium 100 mg BID PO 04/10/24 10:00 04/10/24 09:46 100 MG Laboratory Results Laboratory Tests 04/10/24 06:20 Chemistry Test 04/10/24 06:20 Albumin 4.1 g/dL (3.2-4.8) Calcium Level 9.6 mg/dL (8.7-10.4) Total Protein 6.6 g/dL (5.7-8.2) Coagulation Test 04/10/24 06:20 Prothrombin Time 10.9 sec (9.3-11.8) Prothrombin Time INR 1.03 (0.9-1.15) Activated Partial Thromboplast Time 27.3 SEC (24.5-34.5) LFT Test 04/10/24 06:20 Alanine Aminotransferase (ALT) 29 U/L (7-40) Alkaline Phosphatase 133 U/L (46-116) H Aspartate Amino Transferase (AST) 13 U/L (13-40) Total Bilirubin 0.5 mg/dL (0.2-1.0) Urinalysis Test 03/31/24 17:01 Urine Color Yellow (Yellow) Urine Clarity Turbid (Clear) H Urine pH 6.0 (5.0-9.0) Urine Specific [place] 1.030 (1.001-1.035) Urine Protein 1+ (Negative) H Urine Ketones Trace (Negative) Urine Blood Negative /uL (Negative) Urine Nitrite Negative (Negative) Urine Bilirubin Negative (Negative) Urine Urobilinogen 2 mg/dL (Negative) H Urine Leukocyte Esterase 3+ /uL (Negative) Urine RBC 16 /hpf (0 - 4) Urine WBC 20 /hpf (0 - 5) Urine Squamous Epithelial Cells Mod /hpf (<5) Urine Bacteria Few /hpf (None Seen) H Urine Hyaline Casts Many /lpf (0 - 2) Urine Mucus Few (None Seen) Urine Glucose Normal mg/dL (Normal) Labs and/or images reviewed: Image(s) reviewed by me Assessment/Plan Assessment/Plan Impression: -acute hypoxic respiratory failure -left lung mass with multiple pulmonary nodules to bilateral lungs. Rule out lung CA -primary hypertension -obesity -hypothyroidism -depression Plan: Events: Patient was taken OR for Port-A-Cath. 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 Cardiology consultation currently pending. Echocardiogram reveals no abnormalities with normal ejection fraction -Port-A-Cath placement , pending surgical consultation. -next generation sequencing testing to be ordered for current biopsy -assess patient off of oxygen. Please ambulate the patient -restart thyroid supplementation. -MRI of the brain performed: Noted metastatic lesions. CT of abdomen and pelvis reveals probable metastasis to lumbar spine. Bone scan positive for metastatic disease to L4/S5. -continue Decadron 4 mg p.o. b.i.d. -O2 supplementation to keep saturation greater than 92% -Oncology recommendations reviewed. -social service consultation for assistance with discharge planning, emergency [facility] Total time spent with patient discussing and formulating plan of care: 35 minutes. This medical document was created using an electronic medical record system with [employer] dictation system. Although this document has been carefully reviewed, there may still be some phonetic and typographical errors. These areas are purely typographical due to imperfections of the software programs, and do not reflect any compromise in the patient's medical care. Plan discussed with: Patient, Other (RN) My Orders Orders - YAMILE BUSH NP Procedure Category Date Status Time Regular Diet DIET 04/10/24 Transmitted Breakfast Echo 2d Mode Cardiac US 04/10/24 Resulted DOP 08:34 Date of Service: Apr 10, 2024 Billing Provider: YAMILE BUSH NP Common Visit Codes: [id number] INP/OBS CARE(HIGH) YAMILE BUSH NP Apr 10, 2024 14:03
--- NOTE | 2024-04-10 17:23 | DVHINCON2 ---
Date Seen: Apr 10, 2024 Referring Physician MD Leandra Reason for Consultation Cardiac risk stratification History of Present Illness This is a 63-year-old female who presented to the emergency room with a chief complaint of shortness of breath x 6 weeks. The patient complains of progressi ve shortness of breath associated with a nonproductive cough and generalized weakness prompting her to seek further medical evaluation. She has been diagnosed with a large left hilar mass and large mass replacing most of the left lower lobe with extensive bilateral pulmonary nodules and possible metastatic disease. Cardiology consultation for cardiac risk stratification prior to surgical intervention. Denies chest pain, palpitations, diaphoresis, or syncopal events. Denies exertional angina. Complains of recent episodes of shortness of breath with exertion and at rest. States she is able to ambulate without any restraints. She underwent a 12 lead electrocardiogram revealing a sinus bradycardia rhythm with an associated right bundle branch block and left anterior fascicular block as well as ST segment depression to lead three, AVF, V3, and V4. Significant medical history includes hypertension, thyroid disease, obesity, and depression. Past Medical History Past medical history reviewed. No other significant than mentioned above. Past Surgical History Past Surgical history reviewed. No other significant than mentioned above. Family History: FH: lung cancer Family History Family history. Pertinent with mother from suspected myocardial infarction at 88 y.o. Social History Denies the use of illicit drugs, alcohol, or tobacco use. Allergies: Coded Allergies: Latex (Verified Allergy, Unknown, 04/01/24) Penicillins (Verified Allergy, Unknown, 03/31/24) Home Meds Reported Medications Escitalopram Oxalate (ESCITALOPRAM OXALATE) 20 Mg Tab, 1 TAB PO DAILY 04/01/24 Amlodipine Besylate (Amlodipine Besylate) 5 Mg Tab, 1 TAB PO DAILY 04/01/24 Levothyroxine Sodium (Levothyroxine Sodium) 88 Mcg Tab, 1 TAB PO QAM 04/01/24 Home Meds Home medications reviewed. Current Medications Current Medications Medications (Trade) Dose Ordered Sig/Lizzette Route PRN Reason Start Time Stop Time Status Last Admin Docusate Sodium (Colace Capsule) 100 mg BID PO 04/10/24 10:00 04/10/24 09:46 Review of Systems Constitutional: No symptom reported Ears, Nose, & Throat: No symptom reported Eyes: No symptom reported Neurological: No symptoms reported Pulmonary/Respiratory: SOB Cardiovascular: No symptom reported Gastrointestinal: No symptom reported Genitourinary: No symptom reported Musculoskeletal: No symptom reported Skin: No symptom reported Psychiatric: No symptom reported Endocrine: No symptom reported Hemotologic/Lymphatic: No symptom reported Vital Signs Vital Signs Date Time Temp Pulse Resp B/P (MAP) Pulse Ox O2 Delivery O2 Flow Rate FiO2 04/10/24 16:52 98.1 67 16 109/59 (76) 94 98.1 04/10/24 10:00 Nasal Cannula 1.0 04/10/24 10:00 24 Physical Exam General Appearance: Cooperative. Well developed. Well nourished. In no acute distress Head Exam: Normal inspection Neck Exam: Normal inspection. Non-tender. Normal alignment Pulmonary/Respiratory: Chest non-tender. Clear bilateral breath sounds Cardiovascular/Chest: Regular rate and rhythm. S1, S2. No murmurs. No JVD. Peripheral Pulses: 2+ Radial (R). 2+ Radial (L). 2+ Pedal (R). 2+ Pedal (L) Abdominal Exam: Normal bowel sounds. Soft. Nontender. No hepatospenomegaly. No masses Ankle Exam: Negative ankle edema Lower extremities: Negative lower extremity edema Neuro/Mental Status: A&O x4. Coherent Thoughts/Psych: Normal thought pattern. Appropriate mood and affect. Good judgement and insight Appearance: In no acute distress Skin Exam: Normal inspection. Normal color. Warm. Dry Labs/Diagnostic Data Labs Test 04/10/24 06:20 04/04/24 10:30 04/02/24 05:13 03/31/24 17:01 Range/Units White Blood Count 13.1 H 4.4-10.8 10^3/uL Red Blood Count 5.03 4.0-5.20 10^6/uL Hemoglobin 13.6 12.2-16.2 g/dL Hematocrit 42.4 36.0-46.0 % Mean Corpuscular Volume 84.4 80.0-100.0 fL Mean Corpuscular Hemoglobin 27.0 L 28.0-32.0 pg Mean Corpuscular Hemoglobin Concent 32.0 32.0-36.0 g/dL Red Cell Distribution Width 14.9 H 11.8-14.3 % Platelet Count 404 140-450 10^3/uL Mean Platelet Volume 7.7 6.9-10.8 fL Neutrophils (%) (Auto) 89.1 H 37.0-80.0 % Lymphocytes (%) (Auto) 6.2 L 10.0-50.0 % Monocytes (%) (Auto) 4.4 0.0-12.0 % Eosinophils (%) (Auto) 0.1 0.0-7.0 % Basophils (%) (Auto) 0.2 0.0-2.0 % Neutrophils # (Auto) 11.6 H 1.6-8.6 10 ^3/uL Lymphocytes # (Auto) 0.8 0.4-5.4 10 ^3/uL Monocytes # (Auto) 0.6 0-1.3 10 ^3/uL Eosinophils # (Auto) 0 0-0.8 10 ^3/uL Basophils # (Auto) 0 0-0.2 10 ^3/uL Nucleated Red Blood Cells 0.0 % Prothrombin Time 10.9 9.3-11.8 sec Prothrombin Time INR 1.03 0.9-1.15 Activated Partial Thromboplast Time 27.3 24.5-34.5 SEC Sodium Level 136 136-145 mmol/L Potassium Level 4.4 3.5-5.1 mmol/L Chloride Level 99 98-107 mmol/L Carbon Dioxide Level 26 20-31 mmol/L Anion Gap 11 5-15 Blood Urea Nitrogen 13 9-23 mg/dL Creatinine 0.54 L 0.550-1.02 mg/dL Glomerular Filtration Rate Calc 103 >90 mL/min BUN/Creatinine Ratio 24.1 H 10.0-20.0 Serum Glucose 108 H 74-106 mg/dL Calcium Level 9.6 8.7-10.4 mg/dL Total Bilirubin 0.5 0.2-1.0 mg/dL Aspartate Amino Transferase (AST) 13 13-40 U/L Alanine Aminotransferase (ALT) 29 7-40 U/L Alkaline Phosphatase 133 H 46-116 U/L Total Protein 6.6 5.7-8.2 g/dL Albumin 4.1 3.2-4.8 g/dL Thyroid Stimulating Hormone (TSH) 1.73 0.55-4.78 uIU/mL Lactate Dehydrogenase 150 120-246 U/L Urine Color Yellow Yellow Urine Clarity Turbid H Clear Urine pH 6.0 5.0-9.0 Urine Specific [place] 1.030 1.001-1.035 Urine Protein 1+ H Negative Urine Ketones Trace Negative Urine Blood Negative Negative /uL Urine Nitrite Negative Negative Urine Bilirubin Negative Negative Urine Urobilinogen 2 H Negative mg/dL Urine Leukocyte Esterase 3+ Negative /uL Urine RBC 16 0 - 4 /hpf Urine WBC 20 0 - 5 /hpf Urine Squamous Epithelial Cells Mod <5 /hpf Urine Bacteria Few H None Seen /hpf Urine Hyaline Casts Many 0 - 2 /lpf Urine Mucus Few None Seen Urine Glucose Normal Normal mg/dL Assessment Preprocedural cardiovascular examination Klein lung mass with multiple pulmonary nodules to bilateral lungs Suspected metastatic disease Hypertension Hypothyroidism Depression Obesity Plan/Recommendation (Dr. Powell) Echocardiogram reveals EF 60%. Revised cardiac risk index (Eddie criteria): Class I Risk at 3.9% low-risk of , PA, or cardiac arrest. Patient has no underlying history of congestive heart failure, coronary artery disease, and has an optimal functional capacity. Per Cardiology standpoint, the patient is at an acceptable-risk for low-risk surgery. There is no additional cardiac workup indicated prior to surgery. Thank you for allowing us to care for this patient. Please call with any questions or concerns. This medical document was created using an electronic medical record system with voice recognition software and computerized dictation system. Although this document has been carefully reviewed, there might still be some phonetic and typographical errors. Occasional wrong-word or ``sound-alike substitutions may have occurred due to the inherent limitations of voice recognition software. These areas are purely typographical due to imperfections of the software programs and do not reflect any compromise in the patient's medical care. Please read the chart carefully and recognize, using context, where these substitutions have occurred. Plan discussed with: Patient, Other Date of Service: Apr 10, 2024 Billing Provider: JONO POWELL MD Cardiology Common Codes: 77083-HSMAVAQ INP/OBS CARE (High) KARIVENITAY ZUCKER [facility] Apr 10, 2024 17:23
[2024-04-11] VITALS (10 sets, daily range): BP systolic 113–132; BP diastolic 63–81; PULSE 60–79; RESP 12–19; TEMP 97.9–98; O2SAT 90–95
[2024-04-11] MEDS: MIDAZOLAM HCL 2MG/2ML 2ml VIAL (1mg/ml) ONE (14:03)
[2024-04-11] MEDS: fentaNYL CITRATE 100 MCG/2 ML VL ONE (14:03)
[2024-04-11] MEDS: LIDOCAINE 2%HCL (LOCAL ANESTH.) INJ 20ML MDV ONE (14:03)
[2024-04-11] MEDS: CLINDAMYCIN 600MG IV 50 ML IV ONE (14:23)
[2024-04-11] MEDS: LIDOCAINE W/ EPINEPHRINE 2% INJ 20ML VIAL ONE (14:40)
--- NOTE | 2024-04-11 14:41 | DVHDS2 ---
Discharge Summary Date of Admission Mar 31, 2024 at 21:22 Date of Discharge: Apr 11, 2024 Admitting Diagnosis Pulmonary mass Labs/Diagnostic Data: Laboratory Results Test 04/10/24 06:20 04/04/24 10:30 04/02/24 05:13 03/31/24 17:01 White Blood Count 13.1 10^3/uL (4.4-10.8) Red Blood Count 5.03 10^6/uL (4.0-5.20) Hemoglobin 13.6 g/dL (12.2-16.2) Hematocrit 42.4 % (36.0-46.0) Mean Corpuscular Volume 84.4 fL (80.0-100.0) Mean Corpuscular Hemoglobin 27.0 pg (28.0-32.0) Mean Corpuscular Hemoglobin Concent 32.0 g/dL (32.0-36.0) Red Cell Distribution Width 14.9 % (11.8-14.3) Platelet Count 404 10^3/uL (140-450) Mean Platelet Volume 7.7 fL (6.9-10.8) Neutrophils (%) (Auto) 89.1 % (37.0-80.0) Lymphocytes (%) (Auto) 6.2 % (10.0-50.0) Monocytes (%) (Auto) 4.4 % (0.0-12.0) Eosinophils (%) (Auto) 0.1 % (0.0-7.0) Basophils (%) (Auto) 0.2 % (0.0-2.0) Neutrophils # (Auto) 11.6 10 ^3/uL (1.6-8.6) Lymphocytes # (Auto) 0.8 10 ^3/uL (0.4-5.4) Monocytes # (Auto) 0.6 10 ^3/uL (0-1.3) Eosinophils # (Auto) 0 10 ^3/uL (0-0.8) Basophils # (Auto) 0 10 ^3/uL (0-0.2) Nucleated Red Blood Cells 0.0 % Prothrombin Time 10.9 sec (9.3-11.8) Prothrombin Time INR 1.03 (0.9-1.15) Activated Partial Thromboplast Time 27.3 SEC (24.5-34.5) Sodium Level 136 mmol/L (136-145) Potassium Level 4.4 mmol/L (3.5-5.1) Chloride Level 99 mmol/L (98-107) Carbon Dioxide Level 26 mmol/L (20-31) Anion Gap 11 (5-15) Blood Urea Nitrogen 13 mg/dL (9-23) Creatinine 0.54 mg/dL (0.550-1.02) Glomerular Filtration Rate Calc 103 mL/min (>90) BUN/Creatinine Ratio 24.1 (10.0-20.0) Serum Glucose 108 mg/dL (74-106) Calcium Level 9.6 mg/dL (8.7-10.4) Total Bilirubin 0.5 mg/dL (0.2-1.0) Aspartate Amino Transferase (AST) 13 U/L (13-40) Alanine Aminotransferase (ALT) 29 U/L (7-40) Alkaline Phosphatase 133 U/L (46-116) Total Protein 6.6 g/dL (5.7-8.2) Albumin 4.1 g/dL (3.2-4.8) Thyroid Stimulating Hormone (TSH) 1.73 uIU/mL (0.55-4.78) Lactate Dehydrogenase 150 U/L (120-246) Urine Color Yellow (Yellow) Urine Clarity Turbid (Clear) Urine pH 6.0 (5.0-9.0) Urine Specific [place] 1.030 (1.001-1.035) Urine Protein 1+ (Negative) Urine Ketones Trace (Negative) Urine Blood Negative /uL (Negative) Urine Nitrite Negative (Negative) Urine Bilirubin Negative (Negative) Urine Urobilinogen 2 mg/dL (Negative) Urine Leukocyte Esterase 3+ /uL (Negative) Urine RBC 16 /hpf (0 - 4) Urine WBC 20 /hpf (0 - 5) Urine Squamous Epithelial Cells Mod /hpf (<5) Urine Bacteria Few /hpf (None Seen) Urine Hyaline Casts Many /lpf (0 - 2) Urine Mucus Few (None Seen) Urine Glucose Normal mg/dL (Normal) Other Laboratory Tests 04/10/24 06:20 Brief Hx & Hospital Course: History of Present Illness 63-year-old female presents for evaluation of shortness of breath. Patient endorses a six week history of worsening shortness for breath after coming back from a trip from [place]. She also reports having a 20 lb of unintentional weight loss over the past six weeks. Denies fever or chills. Denies chest pain or palpitations. She was seen at urgent care today and was advised to present to the emergency department for further evaluation. Course of hospitalization: Long discussion was made with the patient regarding her probable diagnosis metastatic lung cancer. CT scan was performed of the abdomen and pelvis which revealed lesions to her lumbar spinal area. Patient also had bone scan which verified metastatic disease to L4 and L5. Patient also had MRI of the brain which was positive for three different areas of metastatic lesion with vasogenic edema to her occipital lobe. Patient had lung biopsy which was positive for pulmonary adenocarcinoma. Oncology consultation was obtained with Dr. Toussaint. Patient will have Port-A-Cath placement. Discussion was made with the patient and family regarding post discharge care including radiation therapy for her metastatic lesions to her brain as well as need for chemotherapy. The patient is to follow up with Dr. Toussaint after establishing [facility] now, hopefully by April 27. She [facility] also [facility] her medical plan that both he and her used for medical care in the past. She was also to follow up to with radiation oncologist for radiation therapy. Recommend to follow up with Dr. Bravo after being discharged from the hospital. She will also be continued on Decadron 4 mg p.o. twice a day for treatment of her vasogenic edema. The patient has also been weaned off of oxygen in his tolerating ambulation without any signs of shortness of breath, dizziness. Physical examination General: Alert and Oriented x3. No acute distress. Well-nourished. Eyes: EOMI. Anicteric. HENT: Moist mucous membranes. Lungs: Clear to auscultation bilaterally. No accessory muscle use. Cardiovascular: Regular rate and rhythm. No murmur. No JVD. Abdomen: Soft, non-tender and non-distended. No palpable masses. Extremities: No edema. Non-tender. Skin: No rashes or lesions. Warm. Neurologic: No focal neurological deficits. CN II-XII grossly intact, but not individually tested. Psychiatric: Cooperative. Appropriate mood and affect. Total time spent with patient discussing and formulating plan of care: 35 minutes. This medical document was created using an electronic medical record system with Soko dictation system. Although this document has been carefully reviewed, there may still be some phonetic and typographical errors. These areas are purely typographical due to imperfections of the software programs, and do not reflect any compromise in the patient's medical care. Consults/Reason for consult Oncology: Pulmonary adenocarcinoma Operations or Procedures 04/01/2024: Lung biopsy Condition at Discharge: Poor Final Diagnosis/Problems List Metastatic lung adenocarcinoma, stage IV Secondary Diagnosis: -acute hypoxic respiratory failure -left lung mass with multiple pulmonary nodules to bilateral lungs. Pulmonary adenocarcinoma -primary hypertension -obesity -hypothyroidism -depression Discharge Disposition: Home Discharge Instruct/Medications Diet: Regular Follow Up/Referral: Discharge Clinic in one week Medications: Decadron 4 mg p.o. twice a day Continue all previous home medications 36 Discharge Statement: "Patient was advised to return to the ER or call 911 if any headaches, dizziness, shortness of breath, chest pain, abdominal pain, bleeding, fevers, or worsening of medical condition. Patient was counseled about treatment plan, medications, possible side effects, patientverbalized understanding. All questions were answered to the best of my ability. This discharge took greater then 30 minutes in planning, reviewing documentation, counseling the patient, and discussing with other team members." ASSESSMENT ASSESSMENT Assessment Date of Service: Apr 11, 2024 Billing Provider: YAMILE BUSH NP Common Visit Codes: 84327-XAS/OBS DISCH DAY >30min YAMILE BUSH NP Apr 11, 2024 14:41
[2024-04-11] MEDS ORDERED: DEX4T PO (14:42)
[2024-04-11] MEDS: HEPARIN SODIUM (PORCINE) 5000 UNITS/ML 1ML VIAL ONE (14:54)
--- NOTE | 2024-04-11 15:53 | DVH ---
XY Insertion of Venous Cath, HISTORY: PORT CATH for Chemotherapy. PROCEDURE: Informed consent was obtained. The patient was placed supine on the interventional table. A limited localization ultrasound of the right neck base was obtained. The right upper chest and neck base were prepped with chlorhexidine which was allowed to dry and draped in the usual sterile fashio n. Time out was performed. With real-time ultrasound guidance, the internal jugular vein was accessed with a micropuncture kit, and an image documenting patency sent to PACS. The planned skin tract and the port placement site were were infiltrated with lidocaine with epinephr ine. The subcutaneous pocket was created with blunt dissection. The catheter was tunneled through the skin tract to the neck site. The [address] port was attached to the tubing flushed. The catheter was trimmed to desired length. The internal jugular vein entrance site was serially dilated and the c atheter was placed through a peel-a-way sheath. The port was flushed with heparinized saline and demo nstrated satisfactory flow. The skin openings were sutured closed in a single layer with Vicryl, as w ell as and Dermabond and then sterile dressings applied. A post procedure image was obtained. No imme diate complication was identified. DAP 42.6 FLUOROSCOPY TIME: 0.8 minutes. SEDATION: Dr. Michelle Bhatt was personally responsible for the administration of moderate sedation during the procedure performed, including the use of an independent trained observer who had no other duties during the procedure. The drugs utilized were IV fentanyl and versed (see nursing log for details). The total time of supervision by the attending physician was approximately 40 minutes. FINDINGS: Widely patent right internal jugular vein. Post procedure image demonstrates [id number] in the right upper chest with the tip upper cavoatrial junction. IMPRESSION: Placement of 8 Belgian x 21 cm right chest [id number]. Please contact IR for removal when no longer needed.
[2024-04-12 05:24] VITALS: BP 122/71; PULSE 60; RESP 18; TEMP 98; O2SAT 95
[2024-04-12 08:00] VITALS: RESP 17; O2SAT 94
[2024-04-12 08:14] VITALS: BP 125/60; PULSE 58; RESP 14; TEMP 97.4; O2SAT 94
[2024-04-12 10:00] VITALS: O2SAT 94
[2024-04-12 12:14] VITALS: BP 128/64; PULSE 65; RESP 16; TEMP 98.2; O2SAT 94
[2024-04-12] MEDS: POLYETHYLENE GLYCOL 17 GM PWDR PO ONE (13:34)
[2024-04-12 13:38] VITALS: BP 128/64; PULSE 65; RESP 16; TEMP 98.2; O2SAT 94
--- NOTE | 2024-05-18 12:07 | ECG ---
[facility] Test Date: 2024-04-10 Test Time: 07:56:51 Pat Name: GAMALIEL MATIAS Department: Room: 0293 A Gender: F Assisted Living Director: RONALD MUÑOZ : 1960 Requested By: JOSSIE ALEXANDER Order Number: [id number] Reading MD: Jose Antonio Jo Measurements Intervals [place] Rate: 57 P: 56 VT: 162 QRS: -47 QRSD: 148 T: -12 QT: 466 QTc: 453 Interpretive Statements Sinus bradycardia Right bundle branch block Left anterior fascicular block Bifascicular block Electronically Signed On 05-19-2024 15:34:30 PST by Jose Antonio Jo Please click the below link to view image of tracing.
== END 2024-04-12 14:51 | disposition home or self-care (01) | DRG 343 ==
LOC: ER 15:15 → OVERFLOW 21:22 → WEST WING 04-01 04:15
PROVIDERS: ADMIT Nurse Practitioner; ATTEND Nurse Practitioner Acute Care
PROC: 0BBJ3ZX Excision of Left Lower Lung Lobe, Percutaneous Approach, Diagnostic (ICD-10-PCS; 2024-04-01)
PROC: 0JH63WZ Insertion of Totally Implantable Vascular Access Device into Chest Subcutaneous Tissue and Fascia, Percutaneous Approach (ICD-10-PCS; principal; 2024-04-11)
PROC: 02HV33Z Insertion of Infusion Device into Superior Vena Cava, Percutaneous Approach (ICD-10-PCS; 2024-04-11)
PROC: B548ZZA Ultrasonography of Superior Vena Cava, Guidance (ICD-10-PCS; 2024-04-11)
DX: C79.51 Secondary malignant neoplasm of bone (principal); J96.01 Acute respiratory failure with hypoxia; C34.92 Malignant neoplasm of unspecified part of left bronchus or lung; J90 Pleural effusion, not elsewhere classified; G93.89 Other specified disorders of brain; N39.0 Urinary tract infection, site not specified; I45.2 Bifascicular block; I10 Essential (primary) hypertension; R59.0 Localized enlarged lymph nodes; E03.9 Hypothyroidism, unspecified; E66.9 Obesity, unspecified; F32.A Depression, unspecified; Z88.0 Allergy status to penicillin; Z80.1 Family history of malignant neoplasm of trachea, bronchus and lung; Z79.899 Other long term (current) drug therapy; Z68.33 Body mass index [BMI] 33.0-33.9, adult
CPT/HCPCS: 10005; 36415; 36561; 70553; 71045; 71250; 74177; 77012; 78306; 80048; 80053; 81001; 83615; 84443; 85025; 85610; 85730; 86850; 86900; 86901; 93306; 94640; 99152; C1894; G0378; J0690; J1956; J2003; J2250; J2405; J2704; J3490